=== PATIENT | male | born 1960 | race Caucasian/White ===

== ENCOUNTER 2023-01-25 18:49 | Emergency (ER) | payer MEDICARE, MEDICAID, SELFPAY ==
--- NOTE | 2023-01-25 18:51 | HMH.EDGENADL ---
Discharge Plan Disposition Patient Disposition: Home, Self-Care Condition: Good Chief Complaint: PAIN Clinical Impressions Clinical Impression: Lumbar spine pain, Abdominal pain, lower, Resting tremor Discharge ED Provider: Robert Mcneil General Adult HPI <Rosemary Rivera MD - Last Filed: 01/25/23 19:02> General Chief complaint: PAIN Stated complaint: Flank Pain Time Seen by Provider: 01/25/23 18:51 History of Present Illness HPI narrative: Patient is a 62-year-old male brought in by EMS for acute on chronic conditions. Patient is a poor historian and had difficulty ascertaining exactly what brought him to the emergency department. Patient states he has a chronic tremor and that this is his baseline but he is at increased lower back pain and associated radicular symptoms bilateral lower extremities. Denies any urinary retention or any Urinary or bowel incontinence any saddle anesthesia or any lower extremity paralysis. However he states his pain is worse than its ever been. 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 He also states he has significant lower abdominal pain associate with this. No diarrhea constipation or urinary symptoms. Related Data Allergies Allergy/AdvReac Type Severity Reaction Status Date / Time No Known Allergies Allergy Verified 01/25/23 19:01 [facility] <Rosemary Rivera MD - Last Filed: 01/25/23 19:02> [facility] Disclaimer: The information contained in this section may have been updated after the patient was seen, as this information can be updated by other users. Social History (Updated 01/25/23 @ 19:02 by Rosemary Rivera MD) Smoking Status: Unknown if ever smoked alcohol intake: never current occupational status: other Travel in the last 8 weeks: None <Rosemary Rivera MD - Last Filed: 01/25/23 19:02> ROS Obtained: Yes All systems reviewed & no additional complaints except as documented Physical Exam <Rosemary Rivera MD - Last Filed: 01/25/23 19:02> General General appearance: other (Patient shaking almost in a chorea like movement which she states is baseline) Respiratory Respiratory exam: Present normal lung sounds bilaterally; Absent respiratory distress Cardiovascular Cardiovascular exam: Present regular rate; Absent tachycardia Abdominal Exam Abdominal exam: Present soft and tenderness (Tender bilateral lower quadrants) Back Exam Back exam: Present other (Midline L-spine tenderness to palpation normal motor and sensory exam distally) Neurological Exam Neurological exam: Present alert and oriented X3 Medical Decision Making <Rosemary Rivera MD - Last Filed: 01/25/23 19:02> Gerard Corbin Pt receiving controlled substance: No Vital Signs: 01/25/23 18:54 01/25/23 19:00 01/25/23 20:00 Temperature 98.4 F Temperature Source Oral Pulse Rate 116 H 100 H Pulse Rate [Left Radial] 114 H Respiratory Rate 20 18 20 Blood Pressure 123/79 112/74 Blood Pressure [Right Arm] 109/69 L Blood Pressure Mean 89 80 Blood Pressure Mean [Right Arm] 82 02 Sat by Pulse Oximetry 96 95 97 Oxygen Delivery Method Room Air Lab Data Lab Results 01/25/23 18:49: WBC 20.2 H*, RBC 5.28, Hgb 15.1, Hct 45.9, MCV 86.8, MCH 28.7, MCHC 33.0, RDW 13.9, Plt Count 209, MPV 8.8, Neut % (Auto) 87.7 H, Lymph % (Auto) 8.4 L, Mobile % (Auto) 3.6, Eos % (Auto) 0.1, Baso % (Auto) 0.1, Neut # (Auto) 17.7 H, Lymph # (Auto) 1.7, Mobile # (Auto) 0.7, Eos # (Auto) 0.0, Baso # (Auto) 0.0, Total Counted 100, Neutrophils % (Manual) 83 H, Lymphocytes % (Manual) 12, Atypical Lymphs % 4.0, Monocytes % (Manual) 1 L, Platelet Estimate Normal, RBC Morphology Normal 01/25/23 18:49: Sodium 137, Potassium 3.4 L, Chloride 97 L, Carbon Dioxide 27, Anion Gap 16.4 H, BUN 8 L, Creatinine 0.70, Estimated Creat Clear 91, Estimated GFR 114, Est GFR ( Amer) 137, Glucose 150 H, Calcium 9.0, Total Biliru
[2023-01-25 18:54] VITALS: BP 109/69; PULSE 114; RESP 20; TEMP 36.9; O2SAT 96; BMI 25.7
--- NOTE | 2023-01-25 18:56 | CT_ITS ---
PROCEDURE INFORMATION: Exam: CT Lumbar Spine Without Contrast Exam date and time: 01/25/2023 7:34 PM Age: 62 years old Clinical indication: Low back pain; Additional info: Midline L spine pain TECHNIQUE: Imaging protocol: Computed tomography of the lumbar spine without contrast. Radiation optimization: All CT scans at this facility use at least one of these dose optimization techniques: automated exposure control; mA and/or kV adjustment per patient size (includes targeted exams where dose is matched to clinical indication); or iterative reconstruction. REPORTING DATA: Count of CT and Cardiac NM exams in prior 12 months: This patient has received 0 known CTs and 0 known cardiac nuclear medicine studies in the 12 months prior to the current study. COMPARISON: No relevant prior studies available. FINDINGS: Bones/joints: Study is markedly degraded by motion artifact predominantly at the T12 through L3 levels which significantly limits sensitivity. Multilevel mild to moderate degenerative disc disease extending from T12-L1 through L4-L5. Mild degenerative retrolisthesis at L2-L3. Alignment and vertebral body heights are otherwise preserved although assessment significantly limited due to the motion artifact. No definite fracture seen with above limitation. The central canal and foramina from T12 to the L2-L3 level can not be accurately assessed due to the motion artifact. Bulging disc at L3-L4 with facet arthritic changes resulting in mild central canal and moderate bilateral foramina narrowing. Bulging disc and facet arthritic changes at L4-L5 with mild central canal narrowing and moderate left and [id number] right foramina narrowing. Bulging disc at L5-S1 with facet arthritic changes resulting in gbvj-[id number]-[id number] bilateral foramina narrowing. Soft tissues: Unremarkable. IMPRESSION: Multilevel degenerative changes. No definite fracture but study markedly limited in the mid to upper levels due to motion artifact.
--- NOTE | 2023-01-25 18:56 | CT_ITS ---
PROCEDURE INFORMATION: Exam: CT Abdomen And Pelvis With Contrast Exam date and time: 01/25/2023 7:38 PM Age: 62 years old Clinical indication: Abdominal pain; Additional info: Lower abd pain TECHNIQUE: Imaging protocol: Computed tomography of the abdomen and pelvis with contrast. Radiation optimization: All CT scans at this facility use at least one of these dose optimization techniques: automated exposure control; mA and/or kV adjustment per patient size (includes targeted exams where dose is matched to clinical indication); or iterative reconstruction. Contrast material: ISOVUE; Contrast volume: 75 ml; Contrast route: IV; REPORTING DATA: Count of CT and Cardiac NM exams in prior 12 months: This patient has received 0 known CTs and 0 known cardiac nuclear medicine studies in the 12 months prior to the current study. COMPARISON: CT LUMBAR SPINE WO CON 01/25/2023 7:34 PM FINDINGS: Lungs: Lung bases are clear. Mediastinal space: Incidental veyv-kf-wxvceabs concentric thickening of the partially included distal esophagus. Liver: Some scattered tiny sub 5 mm low-density lesions are noted in the superior liver too small to characterize but likely cysts. Liver otherwise unremarkable. Gallbladder and bile ducts: Gallbladder has been removed. No evident bile duct dilatation. Pancreas: Normal. No ductal dilation. Spleen: Normal. No splenomegaly. Adrenal glands: Incidental 11 mm right adrenal nodule. Kidneys and ureters: There are 2 benign-appearing left renal cysts largest measuring 6.1 cm. Subcentimeter low-density lesions noted in the lower pole the right kidney too small to characterize but likely cysts. Kidneys and ureters otherwise unremarkable with no obstructing stones or uropathy. Stomach and bowel: GI tract structures unremarkable with no evident wall thickening allowing for incomplete distention. Appendix: Appendix is normal. No evidence of appendicitis. Intraperitoneal space: Unremarkable. No free air. No significant fluid collection. Vasculature: Atherosclerotic changes of the aorta and iliacs noted. No evidence of aneurysm. Lymph nodes: Unremarkable. No enlarged lymph nodes. Urinary bladder: Unremarkable as visualized. Reproductive: Unremarkable as visualized. Bones/joints: Unremarkable. No acute fracture. Soft tissues: Small to moderate-sized fat containing umbilical hernia. IMPRESSION: 1. No acute abnormalities of the abdomen and pelvis. 2. Incidental abnormal thickening of the distal esophagus. This is nonspecific and may be related to esophagitis. However, the possibility of other pathology including potential tumor while thought less likely is not excluded. Consider endoscopic correlation especially if symptoms in this region. 3. Incidental 11 mm right adrenal nodule. Lesion most likely benign if no cancer history. Consider 12 month follow-up adrenal CT. (Reference: Felix) COMMENTS: Consistent with the [employer]'s Incidental Findings Committee white paper (J Am Kumar Radiol 2018): Any incidental renal lesion less than 1 cm or classified as too small to characterize, or any incidental cystic renal lesion characterized as simple-appearing, is likely benign. No follow-up imaging is recommended for these lesions per consensus recommendations based on imaging criteria. REFERENCES: Felix MORENO, et al. Management of Incidental Adrenal Masses: A White Paper of the ACR Incidental Findings Committee. J Am Kumar Radiol. 2017;14(8):9406-3547.
[2023-01-25 19:00] VITALS: BP 123/79; PULSE 116; RESP 18; O2SAT 95
[2023-01-25 19:10] LABS: Basophils % 0.1 % (0.1-2.0); Eosinophils % 0.1 % (0.1-12.0); Hematocrit 45.9 % (42.0-52.0); Hemoglobin 15.1 g/dL (14.1-18.0); Lymphocytes # 1.7 K/mm3 (0.7-4.5); Lymphocytes % 8.4 % (10-50); Mean Corpuscular Hemoglobin 28.7 pg (27.0-31.2); Mean Corpuscular Volume 86.8 fl (80-94); Mean Platelet Volume 8.8 fl (7.4-10.4); Monocytes # 0.7 K/mm3 (0.1-1.0); Monocytes % 3.6 % (1.7-9.3); Neutrophils # 17.7 K/mm3 (1.8-7.8); Neutrophils % 87.7 % (37.0-80.0); Platelet Count 209 K/mm3 (142-424); Red Blood Count 5.28 M/mm3 (4.60-6.20); Red Cell Distribution Width 13.9 % (11.5-17.5); White Blood Count 20.2 K/mm3 (4.8-10.8)
[2023-01-25 19:15] LABS: MANUAL DIFFERENTIAL MANUAL DIFFERENTIAL (MANUAL DIFF)
[2023-01-25 19:17] LABS: Alanine Aminotransferase 27 U/L (12-78); Albumin Level 4.4 g/dl (3.5-5.0); Albumin/Globulin Ratio 1.5 (1.1-1.8); Alkaline Phosphatase 84 U/L (38-126); Anion Gap 16.4 mEq/L (5-15); Aspartate Amino Transferase 29 U/L (17-59); Bilirubin,Total 1.1 mg/dl (0.2-1.3); Blood Urea Nitrogen 8 mg/dl (9-20); Carbon Dioxide 27 mmol/L (22.0-30.0); Chloride 97 mmol/L (98-107); Creatinine Clearance Estimated 91 mL/min (50-200); Estimated Glomerular Filt Rate 114 ml/min (>60); GFR (African American) 137 ML/MIN (>60); Glucose 150 mg/dl (74-100); Potassium 3.4 mmoL/L (3.5-5.1); Sodium 137 mmol/L (136-145); Total Protein,Serum 7.4 g/dl (6.3-8.2)
[2023-01-25 19:31] LABS: Lymphocytes % 12 % (10-50); Monocytes % 1 % (2-9); Neutrophils % 83 % (42-76); Platelet Estimate Normal; RBC Morphology Normal; Total Cells Counted 100
[2023-01-25 20:00] VITALS: BP 112/74; PULSE 100; RESP 20; O2SAT 97
[2023-01-25 20:35] LABS: Lactic Acid 1.2 mmol/L (0.7-2.1)
--- NOTE | 2023-01-25 21:32 | PC.NURSE ---
spoke with maisha, household member who states she will try to obtain a ride.
[2023-01-25 21:34] VITALS: BP 143/93; PULSE 83; RESP 18; TEMP 36.9
== END 2023-01-25 21:46 | disposition home or self-care (01) ==
PROVIDERS: Student in an Organized Health Care Education/Training Program; Emergency Provider Family Medicine
DX: M54.50 Low back pain, unspecified (principal); R10.30 Lower abdominal pain, unspecified; R25.1 Tremor, unspecified
CPT/HCPCS: 72131; 74177; 80053; 83605; 85007; 85025; 87040; 87077; 87186; 96361; 96374; 96375; 99285; J2405; Q9967

== ENCOUNTER 2025-02-08 16:00 | Inpatient (IN) | payer MEDICARE, MEDICAID, SELFPAY ==
[2025-02-08] VITALS (10 sets, daily range): BP systolic 112–160; BP diastolic 64–102; PULSE 87–102; RESP 11–18; TEMP 37.1; O2SAT 94–96; BMI 28.5; BMI 28.3
--- NOTE | 2025-02-08 16:01 | ECG_ITS ---
APPROVED REPORT Exam: Resting ECG HR:102 bpm ECG Measurements Heart Rate 102 AXES DE 180 P 58 QRSd 78 QRS 20 QT 307 T 57 QTc 365 Conclusion Sinus tachycardia Electronically signed by : CANDY PEREZ, 02/08/2025 17:58:36
--- NOTE | 2025-02-08 16:05 | CT_ITS ---
PROCEDURE INFORMATION: Exam: CTA Chest With Contrast Exam date and time: 02/08/2025 5:08 PM Age: 64 years old Clinical indication: Other: Cp and vomiting, epigastric pain out of proportion TECHNIQUE: Imaging protocol: Computed tomographic angiography of the chest with contrast. Exam focused on the arteries. 3D rendering (Not supervised by radiologist): MIP and/or 3D reconstructed images were created by the technologist. Radiation optimization: All CT scans at this facility use at least one of these dose optimization techniques: automated exposure control; mA and/or kV adjustment per patient size (includes targeted exams where dose is matched to clinical indication); or iterative reconstruction. Contrast material: ISO 370; Contrast volume: 90 ml; Contrast route: INTRAVENOUS (IV); COMPARISON: CT ABDOMEN PELVIS W CON 01/25/2023 7:38 PM FINDINGS: Pulmonary arteries: No CT evidence for pulmonary embolism. Aorta: Moderate atherosclerotic calcifications of the aorta. Lungs: Imaging through the visualized lung hannah demonstrates mild bibasilar subsegmental atelectasis. Pleural spaces: Unremarkable. No pneumothorax. No pleural effusion. Heart: Unremarkable. No cardiomegaly. No pericardial effusion. Coronary arteries: Three-vessel coronary artery calcifications. Lymph nodes: Unremarkable. No enlarged lymph nodes. Kidneys: Exophytic simple cyst left kidney measures 6 cm diameter. Bones/joints: Unremarkable. No acute fracture. Soft tissues: Chest wall subcutaneous tissues and musculature appear unremarkable. IMPRESSION: 1. No CT evidence for pulmonary embolism or aortic dissection. No acute abnormalities. 2. Exophytic simple cyst left kidney measures 6 cm diameter. COMMENTS: Consistent with the [employer]'s Incidental Findings Committee white paper (J Am Kumar Radiol 2018): Any incidental renal lesion less than 1 cm or classified as too small to characterize, or any incidental cystic renal lesion characterized as simple-appearing, is likely benign. No follow-up imaging is recommended for these lesions per consensus recommendations based on imaging criteria.
--- NOTE | 2025-02-08 16:05 | CT_ITS ---
PROCEDURE INFORMATION: Exam: CTA Abdomen and Pelvis With Contrast Exam date and time: 02/08/2025 5:08 PM Age: 64 years old Clinical indication: Other: Severe epigastric abd pain out of proportion TECHNIQUE: Imaging protocol: Computed tomographic angiography of the abdomen and pelvis with contrast. Exam focused on the arteries. 3D rendering (Not supervised by radiologist): MIP and/or 3D reconstructed images were created by the technologist. Radiation optimization: All CT scans at this facility use at least one of these dose optimization techniques: automated exposure control; mA and/or kV adjustment per patient size (includes targeted exams where dose is matched to clinical indication); or iterative reconstruction. Contrast material: ISO 370; Contrast volume: 90 ml; Contrast route: INTRAVENOUS (IV); COMPARISON: CT ABDOMEN PELVIS W CON 01/25/2023 7:38 PM FINDINGS: Aorta: Severe atherosclerotic calcifications of the aorta. Celiac trunk and mesenteric arteries: No occlusion or significant stenosis. Renal arteries: No occlusion or significant stenosis. Right iliac arteries: Mild stenosis estimated at 30% at the origin of the right common iliac artery. Left iliac arteries: No occlusion or significant stenosis. Liver: Moderate diffuse hepatic steatosis is identified. Gallbladder and biliary ducts: There has been a cholecystectomy. Pancreas: The pancreas is normal. Spleen: The spleen is normal. Adrenal glands: The adrenal glands appear within normal limits. Kidneys and ureters: Exophytic cyst with minimal layering milk of calcium of the left kidney mid zone measures 6 cm. Stomach and bowel: The stomach appears within normal limits. No wall thickening or inflammatory change. Appendix: No evidence of appendicitis. Intraperitoneal space: No free air. No evidence for focal fluid collection or ascites. No evidence for omental thickening. Lymph nodes: Unremarkable. No pathologically enlarged lymph nodes are identified. Urinary bladder: The bladder appears within normal limits. No wall thickening. Reproductive: Unremarkable as visualized. Bones/joints: No acute fracture. Soft tissues: Umbilical hernia contains fat without bowel. Hernia sac measures 3.5 cm. IMPRESSION: 1. No CT evidence for aortic dissection or aneurysm. 2. Mild stenosis estimated at 30% at the origin of the right common iliac artery. 3. Exophytic cyst with minimal layering milk of calcium of the left kidney mid zone measures 6 cm. 4. Umbilical hernia contains fat without bowel. Hernia sac measures 3.5 cm.
--- OUTSIDE RECORDS SUMMARY | 2025-02-08 16:07 | XMS_ITS | Clinical Summary ---
Author Organization [facility] Address [address] [place] [phone] Phone Care Team Providers Care Enterprise Systems Manager Name Role Phone Madelin Diop PA-C Primary Care Physician [ ] Conditions or Problems Problem Name Problem Code Onset Date Status Entry Date Provider Comment Standard Description Annotate UMBILICAL HERNIA 626083599 (SNOMED CT) 03/02 Active 03/02 Madelin Diop PA-C Umbilical hernia ELEVATED BP READING WITHOUT DX HYPERTENSION R03.0 (ICD-10-CM ) 03/02 Active 03/02 Madelin Diop PA-C Elevated blood-pressure reading, without diagnosis of hypertension HYPOTHYROIDIS M 78390836 (SNOMED CT) 03/02 Active 03/02 Madelin Diop PA-C Hypothyroidism HELICOBACTER PYLORI GASTRITIS 82838711 (SNOMED CT) 03/02 Active 03/02 Madelin Diop PA-C Helicobacter-asso ciated gastritis GERD 111672731 (SNOMED CT) 03/02 Active 03/02 Madelin Diop PA-C Gastroesophageal reflux disease HYPERLIPIDEMI A 76810938 (SNOMED CT) 03/02 Active 03/02 Madelin Diop PA-C Hyperlipidemia SHOULDER PAIN 47454671 (SNOMED CT) 03/02 Active 03/02 Madelin Diop PA-C Pain of shoulder region NECK PAIN 93131650 (SNOMED CT) 03/02 Active 03/02 Madelin Diop PA-C Neck pain BACK PAIN LUMBAR CHRONIC M54.5 (ICD-10-CM ) 03/02 Active 03/02 Madelin Diop PA-C Low back pain TOBACCO USE DIS F17.200 (ICD-10-CM ) 03/02 Active 03/02 Madelin Diop PA-C Nicotine dependence, unspecified, uncomplicated Medications Medication Instructions Start Date Stop Date Generic Name NDC Provider PROMETHAZINE HCL 25 MG TABS TAKE 1 TABLET BY MOUTH EVERY 6 HOURS NEEDED FOR NAUSEA PROMETHAZINE HCL [id number] Madelin Diop PA-C PYLERA 140-125-125 MG CAPS TAKE 1 CAPSULE BY MOUTH 4 TIMES A DAY BIS SUBCIT-METRONID- TETRACYC [id number] Madelin Diop PA-C METOCLOPRAMIDE HCL 10 MG TABS TAKE 1 TABLET BY MOUTH 4 TIMES A DAY NEEDED METOCLOPRAMIDE HCL 51734139310 Madelin Diop PA-C NEXIUM 40 MG CPDR TAKE 1 CAPSULE BY MOUTH ONCE A DAY ESOMEPRAZOLE MAGNESIUM 97369441626 Madelin Diop PA-C CRESTOR 10 MG TABS TAKE 1 TABLET BY MOUTH EVERY NIGHT ROSUVASTATIN CALCIUM [id number] Madelin Diop PA-C Medications Administered No information available. Allergies, Adverse Reactions, Alerts Allergy Name Reaction Description Start Date Severity Statu s Provider CLONIDINE RASH Critical Active Madelin poe PA-C PCN DOESN'T KNOW Critical Active Madelin dunn PA-C Results No information available. Plan of Care Type Date Detail Referral Pain Management Ref [facility] -Dr. Arellano in [place] Titus Connolly MD, [address], [place], [address] Procedures Code Procedure Name Date Entry Date LOVE SALGADO PAIN Pain Management Ref [facility] -Dr. Arellano in [place] Vital Signs Date Name Value Unit Description BMI (Body Mass Index) 31.31 kg/m2 Bod y Mass Index (Ratio) Body Temperature 98 [degF] temperat ure E&M Body Temperature 36.7 Lisa temperat ure in centigrade E&M BP Diastolic 101 mm[Hg] blood pressu re, diastolic BP Systolic 156 mm[Hg] blood pressur e, systolic Heart Rate 109 /min pulse rate Height 182.88 cm height in cent imeters E&M Height 72 [in_us] height E&M Weight Measured 230 [lb_av] weight E& M Weight Measured 230 [lb_av] weight E& M Weight Measured 104.55 kg weight in kilograms E&M Immunizations No information available. Advance Directives No information available.
--- OUTSIDE RECORDS SUMMARY | 2025-02-08 16:08 | XMS_ITS | Clinical Summary ---
Author Organization [facility] Address [address] [place] [address] Care Team Providers Care Naval Architect Name Role Phone Unavailable Primary Care Provider Unavailabl e Social History Tobacco Use Types Packs/Day Years Used Date Smoking Tobacco: Never Assessed Sex and Gender Information Value Date Recorded Sex Assigned at Not on file Legal Sex Male 8:34 PM EDT Gender Identity Not on file Sexual Orientation Not on file Plan of Treatment Health Maintenance Due Date Last Done Comments Dental Oral Exam 1958 Dental Prophylaxis 1958 Dental X-Ray: Bitewings 1958 Dental X-Ray: Full Mouth 1958 [facility]-Depression Screening 1958 [facility]-/Child/Adol SDOH Screenings 1958 [facility]- SDOH Screenings 1976 [facility]-Adult SDOH Screenings 1976 [facility]-DTaP,Tdap,and Td Vaccine s (1 - Tdap) 1977 CT Colonography 2003 Colonoscopy 2003 FIT-DNA 2003 FIT 2003 FOBT 2003 Sigmoidoscopy 2003 [facility]-Colorectal Cancer Screening 2003 [facility]-Pneumococcal Vaccine: 50 + Years (1 of 1 - PCV) 2008 [facility]-Zoster Vaccines (1 of 2) 2008 [id number] Vaccine (1 - 20 24-25 season) 2024 [facility]-Influenza Vaccine (Seas[place] n Ended) 2025 [facility]-RSV Vaccine: 60+ Years o r (1 - 1-dose 75+ series) 2033 HPV Vaccines Aged Out No longer eligi ble based on patient's age to complete this topic [facility]-HIB Vaccines Aged Out No longer e ligible based on patient's age to complete this topic [facility]-Hepatitis A Vaccines Aged Out No longer eligible based on patient's age to complete this topic [facility]-IPV Vaccines Aged Out No longer e ligible based on patient's age to complete this topic [facility]-Rotavirus Vaccines Aged Out No lo nger eligible based on patient's age to complete this topic
--- OUTSIDE RECORDS SUMMARY | 2025-02-08 16:08 | XMS_ITS | Clinical Summary ---
Author Organization [facility] Address [address] [place] [address] Phone Care Team Providers Care Boom Operator Name Role Phone Luis Brito DO Primary Care Provider [phone] Allergies Active Allergy Reactions Criticality Noted Date Comments Ciprofloxacin (Bulk) 03/18/2010 Clonidine Rash High 03/02/2013 Cyclobenzaprine Nausea Only 03/12/2013 Gabapentin Dermatitis 03/12/2013 Lidocaine Rash Pregabalin Palpitations 03/12/2013 Medications busPIRone (BUSPAR) 15 mg Oral TabletIndication s:Generalized anxiety disorder Take 1 Tablet by mouth 2 times daily as needed. 60 Tablet 2 3 Active Additional Information Patient not taking.Reason: Too expensive, Reported on 06/11/2023 betamethasone dipropionate 0.05 % Top CreamIndications :Eczema, unspecified type Apply topically 2 times daily. 45 g 3 Active Additional Information Patient not taking.Reason: Pt electing to not take the medication, Reported on 09/06/2023 methocarbamoL (ROBAXIN) 750 mg Oral Tablet Take 1 Tablet by mouth 4 times daily as needed. 120 Tablet 1 3 Active Additional Information Patient not taking.Reason: Too expensive, Reported on 06/11/2023 hydrocortisone 2.5 % Top CreamIndications :Seborrheic dermatitis Apply topically 2 times daily. 28 g 1 4 Active Active Problems Patient Care Coordination No te Formatting of this note migh t be different from the original. NO CONTROLLED MEDS- RONDA 6.13.17 csta 04/08/2012 Opioids 04/08/2012 Benzo 04/08/2012 soapp (4) 04/08/2012 Gerard 01/10/16#[id number],03/05/16([id number]) [facility] - Javy Camacho MD Interventional Pain Protocol: Gerard report completed (EVERY 3 MONTHS) (12/19/2021) Pharmacy:[facility] [id number] [place] [address] - [address] - [phone] Spine Center additional info (Transportation, WC, Compound, No Show, PPW) [facility] audit completed by Velia Regan RN on 12/20/2022. Problem Noted Date Diagnosed Date Pleurisy with effusion 05/01/2020 Sepsis without acute organ dysfunction 0 Abnormality of heart valve 04/29/2020 Overview (05/06/2020): Added automatically from request for surgery [id number] FH: colon cancer in relative diagnosed at >50 ye ars old 04/22/2017 Hepatitis C antibody test positive 03/20/2017 Diabetic neuropathy with neurologic complication 04/26/2013 Diabetic polyneuropathy 04/26/2013 DM type 2 with diabetic peripheral neuropathy DDD (degenerative disc disease) failed tox 03/12 Gastroesophageal reflux disease 03/02/2013 Hyperlipidemia 03/02/2013 Hypothyroidism 03/02/2013 Vitamin D deficiency 12/04/2012 failed tox screen no more controlls 04/08/2012 Umbilical hernia 05/17/2011 Primary hypothyroidism 11/27/2010 B12 deficiency 10/30/2010 SHANEL (generalized anxiety disorder) 03/20/2010 GERD (gastroesophageal reflux disease) 0 Chronic neck pain 03/18/2010 Hypercholesterolemia Pneumonia due to infectious organism Empyema Pleural effusion on left Bacteremia Resolved Problems Problem Noted Date Diagnosed Date Resolved Date Chest pain in adult 03/20/2017 03/21/20 17 Syncope and collapse 03/20/2017 017 Leukocytosis 03/20/2017 03/21/2017 Diabetic polyneuropathy 03/12/2013 09/0 08/2012 Low back pain 03/02/2013 11/25/2018 DM type 2 with diabetic peripheral neuropathy 12/05/19 13 03/12/2013 Shoulder pain 09/03/2011 11/25/2018 Neck pain 09/03/2011 04/26/2013 DM (diabetes mellitus) 04/17/201004/26 Skull fracture 03/18/2010 02/05/2017 DDD (degenerative disc disease) 03/18/2010 03/12/2013 Fatigue 01/31/2017 Immunizations Immunization Administration Dates Next Due Pneumococcal Conjugate Vaccine 13 Valent 017 Tdap 03/27/2017,12/12/2015,05/20/2012 Surgical History Surgery Date Site/Laterality Comments FRACTURE SURGERY CHOLECYSTECTOMY 08/26/2001 - 08/25/2002 HAND TENDON SURGERY 1980s TONSILLECTOMY AND ADENOIDECTOMY COLONOSCOPY [facility] CT PLEURAL DRAIN PERCUT WITH INSERTION OF INDWELLING CATH W IMAGING 05/06/2020 CT PLEURAL DRAIN PERCUT WITH INSERTION OF INDWELLING CATH W IMAGING 05/06/[address] THORACOSCOPY 05/09/2020 Left Left Video Assisted Thorascopy, Washout and Decortication; Surgeon: Abby Leslie MD; Location: [facility] MAIN OR; Service: Thoracic Medical History Medical History Date Comments GERD (gastroesophageal reflux disease) 03/20/2010 DM (diabetes mellitus) (HCC) 04/17/2010 DDD (degenerative disc disease) 03/18/2010 Hypothyroid 11/27/2010 Back pain Neck pain, chronic DM type 2 with diabetic peripheral neuropathy (H CC) 03/12/2013 DM type 2 with diabetic peripheral neuropathy (H CC) 12/04/2012 Hepatitis SHANEL (generalized anxiety disorder) Family History Medical History Relation Name Comments No Known Problems Brother Cancer Father colon Colon Polyps Father No Known Problems Maternal Grandfather No Known Problems Maternal Grandmother Cancer Mother liver No Known Problems Other No Known Problems Paternal Grandfather No Known Problems Paternal Grandmother No Known Problems Sister Allergies Neg Hx Bleeding Prob Neg Hx Hearing Loss Neg Hx Heart Disease Neg Hx Migraines Neg Hx Thyroid Disease Neg Hx Relation Name Status Comments Brother Father Maternal Grandfather Maternal Grandmother Mother Other Paternal Grandfather Paternal Grandmother Sister Social History Tobacco Use Types Packs/Day Years Used Date Smoking Tobacco: Former Cigarettes 0.5 1 0 03/22/2016 - 03/22/2017 Cigars Smokeless Tobacco: Never Comments:states he smokes ma rjuania Alcohol Use Standard Drinks/Week Comments No 0 (1 standard drink = 0.6 oz pur e alcohol) PHQ-2 Answer Date Recorded PHQ-2 Total Score 0 09/06/2023 Sex and Gender Information Value Date Recorded Sex Assigned at Not on file Legal Sex Male 8:00 PM EDT Gender Identity Not on file Sexual Orientation Not on file Obstetrics History Last Filed Vital Signs Vital Sign Reading Time Taken Comments Blood Pressure 144/89 09/13/2023 1:08 PM EST Pulse 95 09/13/2023 1:08 PM EST Temperature 36.3 C (97.4 F) 09/13/2023 11:56 AM EST Respiratory Rate 18 09/13/2023 1:08 PM EST Oxygen Saturation 97% 09/13/2023 1:08 PM EST Inhaled Oxygen Concentration - - Weight 90.7 kg (200 lb) 09/13/2023 11:56 AM EST Height 182.9 cm (6') 09/13/2023 11:56 AM EST Body Mass Index 27.12 09/13/2023 11:56 AM EST Plan of Treatment Health Maintenance Due Date Last Done Comments Cologuard 2003 FIT 2003 Sigmoidoscopy 2003 Virtual Colonography 2003 Zoster (1 of 2) 2008 Pneumococcal Vaccine 50+ (2 of 2 - PPSV23, PCV20, or PCV21) 03/28/2017 01/31/2017 RSV or 60+ (1 - Ris k 60-74 years 1-dose series) 2018 Colon Cancer Screening 12/26/2022 Colonoscopy 12/26/2022 12/26/2012 AAA Screening 2023 COVID-19 Vaccine (1 - 2023-2 5 season) 2024 Annual Wellness Exam 09/06/2024 09/06/2023 Microalbuminuria 09/06/2024 09/06/2023, , 05/02/2020, Additional history exists Hemoglobin A1c 10/19/2024 04/18/2024, 09/27, 05/14/2022, Additional history exists Diabetic Eye Exam 10/22/2024 10/22/2022 Lipids 04/18/2025 04/18/2024, 04/26, 05/14/2022, Additional history exists Influenza Vaccine (Season Ended) 2025 DTaP/TDaP/Td (4 - Td or Tdap) 03/27/2027, 12/12/2015, 05/20/2012 Hepatitis C Screening Completed 04/30/2020 , 02/05/2017, 01/31/2017 Hepatitis B Vaccine Aged Out No longe r eligible based on patient's age to complete this topic Meningococcal B Vaccine Aged Out No l onger eligible based on patient's age to complete this topic Goals Goal Patient Goal Type Associated Problems Recent Progress Patient-Stated? Author Blood Pressure < 140/90 Blood Pressure 144/89(2023 1:08 PM EST) No Keily Kovacs BMI (Calculated) < 30 General 27.2(09/13/19 11:56 AM EST) Keily Trujillo Maintain a healthy diet, exercise regularly and maintain an ideal body weight General No Cheryl Putnam RMA Stay Tobacco Free Lifestyle No Cheryl Putnam RMA HEMOGLOBIN A1C < 7.0 Result Component 6.9( 1:46 PM EST) Keily Trujillo Procedures Procedure Name Priority Date/Time Associated Diagnosis Comments POCT URINE MICROALBUMIN Routine 09/06/2023 12:02 PM EST POCT GLYCATED HEMOGLOBIN, TOTAL Routine 10/22/2022 1:46 PM EST Type 2 diabetes mellitus without complication, unspecified whether terminal press operator insulin use (HCC) DM type 2 with diabetic peripheral neuropathy (HCC) LIPID SCREEN Routine 05/14/2022 2:49 PM EDT DM type 2 with diabetic peripheral neuropathy (HCC) ACUTE HEPATITIS PANEL Routine 04/30/2020 9:16 AM EDT from Last 3 Months or Most Recently Relevant to Health Maintenance Results * POCT URINE MICROALBUMIN (09/06/2023 12:02 PM EST) Microalb, Ur 30 mg/L 09/06/2023 12:04 PM EST [facility] Creatinine Urine 300 mg/dL 09/06/2023 12:04 PM EST [facility] Micro[employer]/Accounts Payable Professional. Ratio <30 <30 mg/g 09/06/2023 12:04 PM EST [facility] Urine URINE SPECIMEN COLLECTION / Unknown 09/06/2023 12:02 PM EST 09/06/2023 12:04 PM EST us Luis Alisha DO POINT OF CARE TEST ORDERABLES F inal Result Performing Organization Address [facility]/[place] [address] * (ABNORMAL) POCT GLYCATED HEMOGLOBIN, TOTAL (10/22/2022 1:46 PM EST) Hemoglobin A1C 6.9(A) 4 - 6 % SEP OFFICE Lot Number SEP OFFICE Expiration Date SEP OFFICE SeriAl # SEP OFFICE 10/22/2022 1:46 PM EST [facility] POINT OF CARE TEST ORDERABLES F inal Result Performing Organization Address City/[facility]/ZIP Co de Phone Number SEP OFFICE * (ABNORMAL) LIPID SCREEN (05/14/2022 2:49 PM EDT) Cholesterol 186 <200 mg/dL 05/14/2022 9:23 PM EDT PREFERRED [facility] Comment: < 200 Desirable 200 - 239 Borderline High >= 240 High Triglyceride 190(H) <150 mg/dL 05/14/2022 9:23 PM EDT [facility] Comment: < 150 Normal 150 - 199 Borderline High 200 - 499 High >= 500 Very High HDL 39(L) >=40 mg/dL 05/14/2022 9:23 PM EDT [facility] Comment: > 60 Optimal 40 - 60 Acceptable < 40 Low LDL Calculated 114(H) <100 mg/dL 05/14/2022 9:23 PM EDT [facility] Comment: < 100 Optimal 100 - 129 Near or above optimal 130 - 159 Borderline High 160 - 189 High >= 190 Very High Non-HDL-C Calculated 147(H) <=129 mg/dL 05/14/2022 9:23 PM EDT [facility] Comment: <130 Desirable 130-159 Above Desirable 160-189 Borderline High 190-219 High >= 220 Very High Fasting Specimen? No None 022 9:23 PM EDT [facility] Blood VENOUS BLOOD / Unknown Venipuncture / Unknown 05/14/2022 2:49 PM EDT 05/14/2022 2:49 PM EDT Luis Alisha JUDGE CHEMISTRY ORDERABLES Final Resu lt PREFERRED LAB [employer], [facility] [address] , [address] [place] [id number] [facility] [address] [place] [address] * (ABNORMAL) ACUTE HEPATITIS PANEL (04/30/2020 9:16 AM EDT) Hep Bs Ag Non-Reacti ve Non-Reacti ve 04/30/2020 2:15 PM EDT PREFERRED LAB [employer], [facility] Hep B Core IgM Non-Reacti ve Non-Reacti ve 04/30/2020 2:15 PM EDT [facility] [email or web address], [employer] Hep A IgM Non-Reacti ve Non-Reacti ve 04/30/2020 2:15 PM EDT [facility] [employer], [facility] Hep C Ab Reactive(A ) Non-Reacti ve 04/30/2020 2:15 PM EDT [facility] [email or web address], [facility] Comment:Reactive. Antibodies to HCV detected. >97% of specimens with high signal cutoff confirm as reactive. HCV QUANT W/RFLX TO GENOTYPE -REF LAB is suggested for newly diagnosed HCV. Blood Venipuncture / Unknown 04/30/2020 9:16 AM EDT 04/30/2020 9:38 AM EDT Renay Whitfield MD CHEMISTRY ORDERABLES Final Resul t [facility] [address] [facility] [place] [address] from Last 3 Months or Most Recently Relevant to Health Maintenance Insurance MEDICA[place] MED[place] HMO [place] MEDICARE HMO ATTN: MEDICAL DEPT. [address] ATTN: MEDICAL DEPT. [address] * Guarantor: CORPORATE,[facility] Account Type Relation to Patient Date of Phone Billing Address [employer] ATTN: MEDICAL DEPT. [address] Advance Directives For more information, please contact: [phone] * Full Code (Latest Code Status on File) Date Activated Date Inactivated Comments 05/09/2020 8:46 AM 05/14/2020 12:01 AM * Full Code Date Activated Date Inactivated Comments 05/08/2020 5:03 PM 05/09/2020 8:04 AM * Full Code Date Activated Date Inactivated Comments 04/30/2020 9:46 PM 05/05/2020 9:01 PM * Full Code Date Activated Date Inactivated Comments 04/30/2020 4:35 AM 04/30/2020 9:46 PM * Full Code Date Activated Date Inactivated Comments 04/29/2020 10:52 PM 04/30/2020 4:35 AM Care Teams Boom Operator Relationship Specialty Start Date End Date Luis Brito DO [address] [place] [address] PCP - General Family Medicine 11/25/18
--- OUTSIDE RECORDS SUMMARY | 2025-02-08 16:08 | XMS_ITS | Encounter Summary ---
Author Organization [place] [address] [place] [address] Care Team Providers Care Computer Peripheral Equipment Operator Name Role Phone Sarita Ortiz DO Primary Care Provide r [place], [place] Primary Care Provider Luis Fang DO Primary Care Provider [phone] Marla Callahan RN Unavailable Jacey huang Encounter Details Date Type Department Care Team (Late st Contact Info) Description 02/20/2018 Patient Outreach [facility] [address] [place] [address] Sarita Ortiz, DO [address] [place] [address] Social History Tobacco Use Types Packs/Day Years Used Date Smoking Tobacco: Former Cigarettes 0.5 1 0 03/22/2016 - 03/22/2017 Cigars Smokeless Tobacco: Never Alcohol Use Standard Drinks/Week Comments No 0 (1 standard drink = 0.6 oz pur e alcohol) Sex and Gender Information Value Date Recorded Sex Assigned at Not on file Legal Sex Male 8:00 PM EDT Gender Identity Not on file Sexual Orientation Not on file documented as of this encounter Plan of Treatment Scheduled Orders Name Type Priority Associated Diagnoses Orde r Schedule BASIC METABOLIC PANEL Lab Routine Diabetic polyneuropathy (HCC) 1 Occurrences starting 02/20/2018 until 05/23/2018 HEPATIC FUNCTION PANEL Lab Routine Diabetic polyneuropathy (HCC) 1 Occurrences starting 02/20/2018 until 05/23/2018 HEMOGLOBIN A1C Lab Routine Diabetic polyneuropathy (HCC) 1 Occurrences starting 02/20/2018 until 05/23/2018 LIPID SCREEN Lab Routine Diabetic polyneuropathy (HCC) 1 Occurrences starting 02/20/2018 until 05/23/2018 MICROALBUMIN/CREATININ E RATIO URINE Lab Routine Diabetic polyneuropathy (HCC) 1 Occurrences starting 02/20/2018 until 05/23/2018 documented as of this encounter Goals Goal Patient Goal Type Associated Problems Recent Progress Patient-Stated? Author Blood Pressure < 140/90 Blood Pressure 144/89(2023 1:08 PM EST) No Keily Kovacs BMI (Calculated) < 30 General 27.2(09/13/19 11:56 AM EST) No Keily Kovacs Maintain a healthy diet, exercise regularly and maintain an ideal body weight General No Cheryl Putnam RMA Stay Tobacco Free Lifestyle No Cheryl Putnam RMA HEMOGLOBIN A1C < 7.0 Result Component 6.9( 1:46 PM EST) No Keily Kovacs documented as of this encounter Visit Diagnoses Diagnosis Diabetic polyneuropathy (HCC) Type II or unspecified type diabetes mellitus with neurological manifestations, not stated as uncontrolled documented in this encounter Additional Health Concerns Infection Onset Date Last Indicated Resolved Time R/O COVID-19 04/29/2020 04/29/2020 04/29/2020 8:31 PM EDT R/O TB 05/03/2020 05/03/2020 05/05/2020 8:08 AM EDT documented as of this encounter Care Teams Computer Peripheral Equipment Operator Relationship Specialty Start Date End Date Sarita Ortiz DO [address] [place] [address] PCP - General Family Medicine 10/05/16 03/25/18 [place], [place] [address] [place] [address] PCP - General 03/26/18 11/24/18 Luis Brito DO [address] [place] [address] PCP - General Family Medicine 11/25/18 Marla Callahan, RN Bowling Alley Operator Registered Nurse 05/16/2004/27 documented as of this encounter
--- OUTSIDE RECORDS SUMMARY | 2025-02-08 16:08 | XMS_ITS | Referral Summary ---
Author Organization [facility] Address [address] [address] Care Team Providers Care Motorcycle Fabricator Name Role Phone Unavailable Primary Care Provider Unavailabl e Social History Tobacco Use Types Packs/Day Years Used Date Smoking Tobacco: Never Assessed Sex and Gender Information Value Date Recorded Sex Assigned at Not on file Legal Sex Male 8:59 PM EDT Gender Identity Not on file Sexual Orientation Not on file Plan of Treatment Not on file
--- OUTSIDE RECORDS SUMMARY | 2025-02-08 16:08 | XMS_ITS | Encounter Summary ---
Author Organization [place] [address] [place] [address] Care Team Providers Care Air Conditioning Sheet Metal Installer Name Role Phone [employer], [place] Primary Care Provider Luis Fang DO Primary Care Provider [phone] Marla Callahan RN Unavailable Jacey huang Encounter Details Date Type Department Care Team (Late st Contact Info) Description 03/26/2018 Patient Outreach [facility] [address] [place] [address] Sarita Ortiz [address] [place] [address] Social History Tobacco Use Types [...] Routine Diabetic polyneuropathy (HCC) 1 Occurrences starting 03/26/2018 until 06/26/2018 HEPATIC FUNCTION PANEL Lab Routine Diabetic polyneuropathy (HCC) 1 Occurrences starting 03/26/2018 until 06/26/2018 LIPID SCREEN Lab Routine Diabetic polyneuropathy (HCC) 1 Occurrences starting 03/26/2018 until 06/26/2018 MICROALBUMIN/CREATININ E RATIO URINE Lab Routine [address] arting 03/26/2018 until 03/26/2019 HEMOGLOBIN A1C Lab Routine Diabetic polyneuropathy (HCC) 1 Occurrences starting 03/26/2018 until 06/26/2018 documented as of this encounter Goals Goal Patient Goal Type Associated Problems Recent Progress Patient-Stated? Author Blood Pressure < 140/90 Blood Pressure 144/89(2023 1:08 PM EST) No Keily Kovacs BMI (Calculated) < 30 General 27.2(09/13/19 24 11:56 AM EST) Keily Trujillo Maintain a [...] documented as of this encounter Care Teams Air Conditioning Sheet Metal Installer Relationship Specialty Start Date End Date [facility] PCP - General 03/26/18 11/24/18 Luis Brito DO [address] [place] [address] PCP - General Family Medicine 11/25/18 Marla Callahan, RN Edm Operator Registered Nurse 05/16/2004/27 documented as of this encounter
--- OUTSIDE RECORDS SUMMARY | 2025-02-08 16:08 | XMS_ITS | Clinical Summary ---
Author Organization [facility] Address [address] [place] [address] Care Team Providers Care Gum Worker Name Role Phone Unavailable Primary Care Provider Unavailabl e Social History Tobacco Use Types Packs/Day Years Used Date Smoking Tobacco: Never Assessed Sex and Gender Information Value Date Recorded Sex Assigned at Not on file Legal Sex Male 8:59 PM EDT Gender Identity Not on file Sexual Orientation Not on file Plan of Treatment Health Maintenance Due Date Last Done Comments Hepatitis C Screening 1958 DTap,Tdap,and Td (1 - Tdap) 1969 Colonoscopy 2003 PSA YEARLY 2008 Pneumococcal 50+ (1 of 1 - PCV) 2008 Shingrix (#1) 2008 Influenza Vaccine (Season Ended) 2025 RSV Vaccine (60+ or ) (1 - 1-dose 75+ series) 2033 HPV Aged Out No longer eligi ble based on patient's age to complete this topic Meningococcal conjugate ana nt 4 (MCV4) Aged Out No longer eligible b ased on patient's age to complete this topic RSV Immunization (<20 months) Aged Out No longer eligible based on patient's age to complete this topic
--- NOTE | 2025-02-08 16:24 | ED_ITS ---
Discharge Plan Disposition Patient Disposition: Admitted Referrals Follow up/Referrals: Provider,Referral, [Referring, Medical] - See instructions Clinical Impressions Clinical Impression: Intractable abdominal pain, Vomiting and diarrhea Instructions Patient Instructions: DI for Diarrhea and Traveler's Diarrhea -- Adult, DI for Diarrhea and Traveler's Diarrhea -- Child, DI for Nausea -- Adult, DI for Nausea -- Child Print Language Print Language: Slovak Discharge ED Provider: Rafael East HPI General Chief Complaint: Nausea/Vomiting/Diarrhea Stated Complaint: Vomiting Time Seen by Provider: 02/08/25 16:01 History of Present Illness HPI narrative: Please note that above description of symptoms, in this electronic medical record under categorization of recalled from ER triage doctor by RN are reflective of an initial nursing assessment, however, is not reflective of my full history and physical exam that was personally taken and clarified. Consequentially, this preceding description of symptoms, which may include the patient's categorized chief complaint in the EMR, do not reflect my personal clinical impression, and the ultimate description of history of present illness and patient stated complaints should be deferred to this section of the note. Unless stated otherwise or congruent with this section of the note, additional signs, symptoms, or incongruence should be interpreted as inaccurate with my clinical impression. Related Data Allergies Allergy/AdvReac Type Severity Reaction Status Date / Time No Known Allergies Allergy Verified 01/25/23 19:01 [facility] Disclaimer: The information contained in this section may have been updated after the patient was seen, as this information can be updated by other users. Social History (Updated 01/25/23 @ 19:02 by Rosemary Rivera MD) Smoking Status: Never smoker alcohol intake: never current occupational status: other Travel in the last 8 weeks?: None Have you lived/traveled outside US in past 30 days?: No Contact w/someone who lives/traveled outside US past 30 days?: No Exposure to someone with infectious disease in past 14 days?: No Do you have a fever (greater than 100.4 F or 38 C)?: No Have you tested positive for COVID-19?: No Exposed to someone with COVID-19 in past 14 days?: No Do you have a sore throat?: No Do you have a cough?: No Do you have any weakness?: No Do you have any diarrhea?: No Are you experiencing any unusual bleeding?: No Do you have any muscle aches/pain?: No Do you have any abdominal pain?: No Are you experiencing loss of taste or smell?: No ROS Obtained: Yes All systems reviewed & no additional complaints except as documented Physical Exam General General appearance: alert and in no apparent distress Comment: malodorous, unkempt Neck Neck exam: Present trachea midline Chest Chest inspection: Present normal inspection and symmetric chest wall rise Respiratory Respiratory exam: Present normal lung sounds bilaterally; Absent respiratory distress, wheezes, stridor, accessory muscle use or prolonged expiratory phase Cardiovascular Cardiovascular exam: Present normal rhythm, tachycardia and other (Pulses equal and symmetric in upper and lower extremities) Abdominal Exam Abdominal exam: Present soft, distention, tenderness and hernia (irreducible umbilical hernia); Absent guarding, rebound or rigidity Extremities Exam Extremities exam: Absent edema Neurological Exam Neurological exam: Present alert, oriented X3 and CN II-XII intact Skin Skin exam: Present warm and dry; Absent cyanosis, diaphoresis or pallor HEART Score HEART Score HEART Score assessment performed?: Yes History (anamnesis): Moderately suspicious ECG: Normal Age: >65 years Risk factors: 1-2 risk factors Troponin: </= normal limit HEART Score: 4 Critical Care Critical Care Time Critical Care Time: No Medical Decision Making Medical Records Medical records reviewed: Yes I reviewed the patient's medical records. Gerard Inquiry Pt receiving controlled substance: No Gerard was queried for this patient: No Vital Signs Vital Signs: 02/08/25 16:30 02/08/25 16:39 02/08/25 17:00 Temperature 98.7 F Temperature Source Oral Pulse Rate 97 H 93 H Pulse Rate [Right Radial] 102 H Respiratory Rate 18 15 12 Blood Pressure 117/68 112/66 Blood Pressure [Right Arm] 130/77 Blood Pressure Mean [Right Arm] 94 Blood Pressure Source [Right Arm] Automatic Cuff Blood Pressure Position [Right Arm] Supine 02 Sat by Pulse Oximetry 95 96 95 Oxygen Delivery Method Room Air 02/08/25 17:30 Temperature Temperature Source Pulse Rate 88 Pulse Rate [Right Radial] Respiratory Rate 14 Blood Pressure 117/64 Blood Pressure [Right Arm] Blood Pressure Mean [Right Arm] Blood Pressure Source [Right Arm] Blood Pressure Position [Right Arm] 02 Sat by Pulse Oximetry 95 Oxygen Delivery Method Lab Data Labs: Lab Results 02/08/25 16:22: WBC 12.0 H, RBC 5.59, Hgb 17.0, Hct 50.1, MCV 89.6, MCH 30.4, MCHC 33.9, RDW 12.6, Plt Count 244, MPV 11.7 H, Neut % (Auto) 83.2 H, Lymph % (Auto) 9.1 L, Parker % (Auto) 6.7, Eos % (Auto) 0.5, Baso % (Auto) 0.2, Neut # (Auto) 10.0 H, Lymph # (Auto) 1.1, Parker # (Auto) 0.8, Eos # (Auto) 0.1, Baso # (Auto) 0.0, Sodium 137, Potassium 3.7, Chloride 108 H, Carbon Dioxide 21 L, Anion Gap 11.7, BUN 15, Creatinine 0.80, Estimated Creat Clear 98, Estimated GFR 97, Est GFR ( Amer) 117, Glucose 189 H, Hemoglobin A1c 9.2 H, Calcium 9.4, Total Bilirubin 0.8, AST 29, ALT 32, Alkaline Phosphatase 70, Troponin I < 0.01, Total Protein 7.5, Albumin 4.4, Globulin 3.1, Albumin/Globulin Ratio 1.4, Triglycerides 195 H, Cholesterol 188, LDL Cholesterol Direct 108.27, VLDL Cholesterol 39, HDL Cholesterol 37 L, Cholesterol/HDL Ratio 5.1 H, Lipase 78, TSH 1.38, Thyroxine (T4) 5.5 L 02/08/25 16:27: VBG pH 7.34, VBG pCO2 38.2, VBG pO2 88.8 H, VBG HCO3 20.0 L, VBG Total CO2 21.2 L, VBG O2 Saturation 96.9 H, VBG Base Excess -5.8 L, VBG Lactic Acid 3.0 H 02/08/25 16:34: PT 10.9, INR 0.98, APTT 22.0 L, HIV Ag/Ab Combo Qual Negative 02/08/25 16:22 02/08/25 16:22 Response Orders (Tests/Meds): ED MEDICATIONS Generic Name Dose Route Start Last Admin Trade Name Freq PRN Reason Stop Dose Admin Dicyclomine HCl 20 mg 02/08/25 18:47 Dicyclomine 10mg Capsule PO 03/10/25 18:46 Q6HP PRN abdominal pain Lactated Ringer's 1,000 mls @ 100 mls/hr 02/08/25 19:00 Lactated Ringer's 1000 Ml Bag IV 02/09/25 04:59 .Q10H [facility] Insulin Human Lispro 0 unit 02/08/25 21:00 Humalog 100 Units/Ml 10ml Vial (Ssi) SUBCUT 03/10/25 20:59 ACHS LIDNA Protocol Sodium Chloride 10 ml 02/08/25 16:32 Sodium Chloride 0.9% 10ml Vial IV 03/10/25 16:31 NEEDED PRN dilute protonix Sodium Chloride 10 ml 02/08/25 17:09 02/08/25 17:12 Sodium Chloride 0.9% 10ml Syr (Rad Only) IV 03/10/25 17:08 10 ml NEEDED PRN Administration Maintain IV Site Discontinued Medications Generic Name Dose Route Start Last Admin Trade Name Freq PRN Reason Stop Dose Admin Hydromorphone HCl 0.5 mg 02/08/25 16:32 02/08/25 16:58 Hydromorphone 2mg/Ml Syringe IV 02/08/25 16:33 0.5 mg ONCE ONE Administration Hydromorphone HCl 0.5 mg 02/08/25 18:30 02/08/25 18:38 Hydromorphone 2mg/Ml Syringe IV 02/08/25 18:31 0.5 mg ONCE ONE Administration Sodium Chloride 1,000 mls @ 999 mls/hr 02/08/25 16:05 02/08/25 16:59 Sod Chlor 0.9% 1000ml Bag IV 02/08/25 17:05 999 mls/hr .Q1H1M ONE Administration Iopamidol 90 ml 02/08/25 17:09 02/08/25 17:11 Iopamidol-370 (76%);100ml Bottle IV 02/08/25 17:10 90 ml ONCE ONE Administration Ketorolac Tromethamine 15 mg 02/08/25 16:32 02/08/25 16:58 Ketorolac 30mg/Ml Vial IV 02/08/25 16:33 15 mg ONCE ONE Administration Pantoprazole Sodium 40 mg 02/08/25 16:32 02/08/25 16:58 Pantoprazole 40mg Vial IV 02/08/25 16:33 40 mg ONCE ONE Administration Sodium Chloride 50 ml 02/08/25 17:09 02/08/25 17:11 0.9 % Sodium Chloride 50 Ml Vial IV 02/08/25 17:10 50 ml ONCE ONE Administration ORDERS Category Date Time Status CT angio abdomen pelvis Stat Cat Scan 02/08/25 16:05 Completed CTA Chest [CT angio chest - dissection] Stat Cat Scan 02/08/25 16:05 Completed Complete Blood Count Auto Diff AMLAB Lab 02/09/25 06:00 Ordered Complete Blood Count Auto Diff Stat Lab 02/08/25 16:22 Completed Comprehensive Metabolic Panel AMLAB Lab 02/09/25 06:00 Ordered Comprehensive Metabolic Panel Stat Lab 02/08/25 16:22 Completed Diarrhea 6-11 Panel, Cdiff PCR Stat Lab 02/08/25 18:13 Ordered HIV Combo Stat Lab 02/08/25 16:34 Completed Hemoglobin A1C Stat Lab 02/08/25 16:22 Completed Hepatitis C Ab Qual. W/ RFX Stat Lab 02/08/25 16:34 Received Lipase Stat Lab 02/08/25 16:22 Completed Lipid Panel Stat Lab 02/08/25 16:22 Completed Magnesium AMLAB Lab 02/09/25 06:00 Ordered PT INR [Prothrombin Time INR] Stat Lab 02/08/25 16:34 Completed PTT [Activated Partial Thrombo Time] Stat Lab 02/08/25 16:34 Completed T4 (Thyroxine) Stat Lab 02/08/25 16:22 Completed TSH [Thyroid Stimulating Hormone] Stat Lab 02/08/25 16:22 Completed Troponin I Q3H Lab 02/08/25 19:15 Ordered Troponin I Q3H Lab 02/08/25 22:15 Ordered Troponin I Stat Lab 02/08/25 16:22 Completed Urinalysis and Microscopic Stat Lab 02/08/25 18:28 Received Blood Culture Stat Micro 02/08/25 17:28 Received Venous Blood Gas Stat RT 02/08/25 16:27 Completed MDM Narrative Medical Decision Narrative: 64-year-old male no relevant medical history, reported, although he does not see a medical doctor presenting with vomiting, abdominal pain. He states that he started having vomiting 3 days prior to this on 02/05. Since that time, he is developed moderate to severe abdominal pain. Left-sided at his left lower quadrant and left upper quadrant. Made worse with application of pressure. No fevers or chills or systemic signs or symptoms. Last bowel movement was just before arrival. He states he is also been having diarrhea for the last 2 days. No blood in his vomit or stool. He does have an umbilical hernia, he states that it has not been reducible for years and that is not new. Not having any particular pain over the hernia, but he states that it always hurts somewhat. Has not taken anything for the pain. Called EMS for transport to the hospital given 10 out of 10 pain. They arrived and patient was waiting outside asking for pain medication. Diaphoretic, pale. Got 100 mcg of fentanyl as well as 4 of Zofran and some normal saline fluid. Pain went from 10 out of 10 to 4 out of 10. Glucose right around 200 with them. Brought to the ED today for further evaluation. History was obtained via conversation with patient and EMS. On arrival, patient hemodynamically stable, alert, oriented x4, appropriate, GCS 15, moving all extremities spontaneously, pupils equal and reactive to light. Full physical exam performed and significant for chronically ill-appearing male who is in no acute distress. Speaking in full sentences. Hypertensive, mildly tachycardic. Disheveled, malodorous. Abdomen is soft, distended, tender in left lower quadrant left upper quadrant, no evidence of guarding, peritonitis. He does have an umbilical hernia that is irreducible and mildly tender with attempts at reducing. No overlying skin changes. Seems to be out of proportion to abdominal exam. Differential includes ACS, ND gastritis, enteritis, gastroenteritis, pancreatitis, dissection, mesenteric ischemia, PUD, among others. Patient was given Toradol, Dilaudid, Protonix for symptomatic management and correction of underlying abnormalities. Patient placed on continuous cardiac monitoring and continuous pulse ox with initial blood pressure 117/68, heart rate 97, saturation 95% on room air. Independent interpretation of EKG shows sinus tachycardia 102 bpm with [place] 180, QRS 78, QTc 365. No acute ischemic change workup independently interpreted and significant for leukocytosis of 12 with relative neutrophilia. Patient's coags nonactionable. VBG with lactic acidosis of 3.0, bicarb low at 20 but normal pH and normal CO2. Chemistry with normal kidney function. A1c elevated at 9.2 consistent with undiagnosed diabetes. Anion gap is normal. Patient's troponin negative, lipase also negative. On independent interpretation of imaging, no obvious intra-abdominal abnormality. Colon on the left side is mildly inflamed, no evidence of perforation, diverticulitis, or other acute intra-abdominal abnormality. Periumbilical hernia seems to only contain fat. No evidence of obstruction. See radiology read for full review of final results. Heart score 4. Reevaluation, patient still in significant pain. Stool sample was ordered, more Dilaudid was administered. Patient's abdomen is distiller. I feel this is likely the result of severe abdominal pain with intractable in the setting of gastroenteritis. Because no signs of ischemia, or intra-abdominal surgical pathology found on CT imaging, hospital medicine was contacted and case was discussed at length for pain control in the setting of severe gastroenteritis. Graciously accepted patient for admission. Because patient high risk for clinical decompensation, deemed appropriate for inpatient admission. Results were relayed to patient who voiced understanding and patient was agreeable to inpatient admission and management. Patient was admitted to the hospital for further definitive management. Director [employer] disclaimer Much of this encounter note is an electronic manager wound spoken language to printed text. Electronic manager wound of the spoken language may permit errors. Although I have reviewed the note, some errors may still exist.
[2025-02-08 16:34] LABS: VBG Base Excess -5.8 mmol/L (-2.4-2.3); VBG Oxygen Saturation 96.9 % (50-70); VBG PCO2 38.2 mmol/L (35-51); VBG PH 7.34 mmol/L (7.31-7.41); VBG PO2 88.8 mmol/L (28-40); VBG Total CO2 21.2 mmol/L (23-27)
[2025-02-08 16:34] LABS: Basophils % 0.2 % (0.1-2.0); Eosinophils # 0.1 Kmm3 (0.0-0.4); Eosinophils % 0.5 % (0.1-12.0); Hematocrit 50.1 % (42.0-52.0); Immature Granulocytes # 0.04 10^3uL; Immature Granulocytes % 0.3 %; Lymphocytes # 1.1 K/mm3 (0.7-4.5); Lymphocytes % 9.1 % (10-50); Mean Corpuscular HGB Conc 33.9 g/dL (31.8-35.4); Mean Corpuscular Hemoglobin 30.4 pg (27.0-31.2); Mean Corpuscular Volume 89.6 fl (80-94); Mean Platelet Volume 11.7 fl (7.4-10.4); Monocytes # 0.8 K/mm3 (0.1-1.0); Monocytes % 6.7 % (1.7-9.3); Neutrophils % 83.2 % (37.0-80.0); Nucleated Red Blood Cells # 0 10^3/uL; Nucleated Red Blood Cells % 0 %; Platelet Count 244 K/mm3 (142-424); Red Blood Count 5.59 M/mm3 (4.60-6.20); Red Cell Distribution Width 12.6 % (11.5-17.5); Red Cell Distribution Width-SD 41.4 fL
[2025-02-08 16:49] LABS: Albumin Level 4.4 g/dl (3.5-5.0); Chloride 108 mmol/L (98-107); Sodium 137 mmol/L (136-145)
[2025-02-08 16:50] LABS: Potassium 3.7 mmoL/L (3.5-5.1)
[2025-02-08 16:52] LABS: Alanine Aminotransferase 32 U/L (12-78); Albumin/Globulin Ratio 1.4 (1.1-1.8); Alkaline Phosphatase 70 U/L (38-126); Anion Gap 11.7 mEq/L (5-15); Aspartate Amino Transferase 29 U/L (17-59); Bilirubin,Total 0.8 mg/dl (0.2-1.3); Blood Urea Nitrogen 15 mg/dl (9-20); Carbon Dioxide 21 mmol/L (22.0-30.0); Creatinine Clearance Estimated 98 mL/min (50-200); Estimated Glomerular Filt Rate 97 ml/min (>60); GFR (African American) 117 ML/MIN (>60); Globulin 3.1 g/dL (1.3-3.2); Lipase 78 U/L (23-300); Total Protein,Serum 7.5 g/dl (6.3-8.2)
[2025-02-08 16:53] LABS: Calcium 9.4 mg/dl (8.4-10.2); Chol/HDL Ratio 5.1 (1-3.5); Cholesterol 188 mg/dl (140-200); Glucose 189 mg/dl (74-100); HDL Cholesterol 37 mg/dl (40-60); Triglycerides 195 mg/dl (30-150); VLDL Cholesterol 39 mg/dL (0-40)
[2025-02-08] MEDS: KETOROLAC 30MG/ML VIAL 15 MG IV (16:58)
[2025-02-08] MEDS: PANTOPRAZOLE 40MG VIAL 40 MG IV (16:58)
[2025-02-08] MEDS: HYDROMORPHONE 2MG/ML SYRINGE 0.5 MG IV ×2 (16:58→18:38)
[2025-02-08] MEDS: 0.9 % SODIUM CHLORIDE 1000ML 1,000 ML 999 ML IV (16:59)
[2025-02-08 17:04] LABS: Direct LDL Cholesterol 108.27 mg/dL (100-129)
[2025-02-08 17:10] LABS: T4 (Thyroxine) 5.5 ug/dl (5.53-11.0)
[2025-02-08] MEDS: 0.9 % SODIUM CHLORIDE 50 ML VIAL IV (17:11)
[2025-02-08] MEDS: IOPAMIDOL-370 (76%);100ML BOTTLE 90 ML IV (17:11)
[2025-02-08] MEDS: SODIUM CHLORIDE 0.9% 10ML SYR (RAD ONLY) 10 ML IV (17:12)
[2025-02-08 17:15] LABS: Hemoglobin A1C 9.2 % (4.0-6.0); Troponin I < 0.01 ng/ml (0.00-0.034)
[2025-02-08 17:23] LABS: Thyroid Stimulating Hormone 1.38 uIU/mL (0.465-4.68)
[2025-02-08 17:25] LABS: INR 0.98 (0.9-1.1); Prothrombin Time 10.9 seconds (10.1-12.5)
[2025-02-08 18:30] LABS: Microscopic, Urine URINE MICROSCOPIC (MICROSCOPIC)
[2025-02-08 18:31] LABS: Appearance,Urine CLEAR (Clear); Bilirubin,Urine Negative (Negative); Blood, Urine Negative (Negative); Color,Urine YELLOW (Yellow); Glucose,Urine (UA) Negative (Negative); Ketones,Urine Negative (Negative); Leukocyte Esterase,Urine Negative (Negative); Nitrate,Urine Negative (Negative); PH,Urine 5.5 (5.0-8.5); Protein,Urine TRACE (Negative); Urobilinogen,Urine 0.2 EU/dl (0.2)
[2025-02-08 18:32] LABS: HIV Combo NEGATIVE (Negative)
[2025-02-08 18:51] LABS: Amorphous Sediment,Urine Trace /lpf; Bacteria,Urine Trace /lpf; Fine Granular Casts,Urine Occasional #/lpf (0); Mucus,Urine 2+ /lpf; RBC,Urine Occasional #/hpf (0-3); Squamous Epithelial Cell,Urine Occasional #/hpf (0-5); WBC,Urine Occasional #/hpf (0-3)
--- NOTE | 2025-02-08 19:21 | PC.NURSE ---
rounded on pt. pt voices no needs.
[2025-02-08 19:38] LABS: Hepatitis C Ab Qual. W/ RFX REACTIVE (Negative)
[2025-02-08 19:54] LABS: Troponin I < 0.01 ng/ml (0.00-0.034)
--- NOTE | 2025-02-08 19:59 | P.HP_ITS ---
<Statement entered by Gui Raymundo MD - 02/09/25 10:56> Rounded on patient after nurse practitioner. Personally examined and interviewed patient. Agree with exam findings and care plan as documented. Stool panel pending. Continues to have pain in the morning. Will slowly advance diet. History of Present Illness *Admission Date: 02/08/25 *Reason for visit:: Abdominal pain with diarrhea new onset diabetes mellitus *History of present illness: This patient whose had abdominal pain for 3 days with a lot of diarrhea, stating that basically left upper quadrant to the umbilicus where he has a old hernia. That has not changed in any time, patient states he is homebound because he does not have a car.. That he normally would see Dr. Brito at [place]. He noted that he did also have chest tubes approximately 4 years ago on the left side. Approximately 3 weeks ago he ended up having several dogs that were ill for of them he treated them as if it was parvovirus 1 dog did live and is in the house with him with 5 other dogs and 7 cats. EMS that picked him up gave a report that the inside of the house was quite cluttered. Patient also has been diagnosed with having diabetes mellitus hemoglobin A1c of 9.7. Still is not year if he knew he had diabetes. Has had elevated blood sugars on every lab drawn since the early 1999. After Dr. Raymundo have spoken with the ER physician we will be admitting., Looking at the fact has been exposed to so many animals will also give Levaquin to treat if it is a abdominal bacterial infection related to being exposed to the animals. Also will place him on sliding scale and start to treat his diabe fouzia. Will add Pepto-Bismol as needed to try to stop the diarrhea also waiting for stool specimen. 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 [facility] Disclaimer: The information contained in this section may have been updated after the patient was seen, as this information can be updated by other users. Medical History Pneumonia Obesity (BMI 35.0-39.9 without comorbidity) Umbilical hernia Surgical History H/O chest tube placement Social History (Updated 02/08/25 @ 22:08 by Brittany Chester RN) Smoking Status: Never smoker alcohol intake: never substance use type: marijuana current occupational status: other Travel in the last 8 weeks?: None Have you lived/traveled outside US in past 30 days?: No Contact w/someone who lives/traveled outside US past 30 days?: No Exposure to someone with infectious disease in past 14 days?: No Do you have a fever (greater than 100.4 F or 38 C)?: No Have you tested positive for COVID-19?: No Exposed to someone with COVID-19 in past 14 days?: No Do you have a sore throat?: No Do you have a cough?: No Do you have any weakness?: No Do you have any diarrhea?: No Are you experiencing any unusual bleeding?: No Do you have any muscle aches/pain?: No Do you have any abdominal pain?: No Are you experiencing loss of taste or smell?: No Review of Systems Review of Systems Review of systems:: pertinent systems reviewed and negative unless documented below Constitutional Constitutional: Reports as per HPI Eyes Eyes: Reports as per HPI ENT Ears, Nose, Mouth, and Throat: Reports as per HPI *Cardiovascular Cardiovascular: Reports as per HPI *Respiratory Respiratory: Reports as per HPI *Gastrointestinal Gastrointestinal: Reports as per HPI, Reports abdominal pain, Reports fecal incontinence, Reports nausea and Reports vomiting *Genitourinary Genitourinary: Reports as per HPI *Musculoskeletal Musculoskeletal: Reports as per HPI Integumentary/Breasts Skin/Breast: Reports as per HPI *Neurologic Neurologic: Reports as per HPI Psychiatric Psychiatric: Reports as per HPI Endocrine Endocrine: Reports as per HPI Hematologic/Lymphatic Hematologic/Lymphatic: Reports as per HPI Allergic/Immunologic Allergic/Immunologic: Reports as per HPI Meds Home Medications and Allergies Home Medications ?Medication ?Instructions ?Recorded ?Confirmed ?Type No Known Home Medications 02/09/2501/24 History New Prescriptions to Start Prescriptions: Allergies Allergy/AdvReac Type Severity Reaction Status Date / Time No Known Allergies Allergy Verified 01/25/23 19:01 Exam Data for Last 24 hours Vital signs and Labs for Last 24 Hours: Temp Pulse Resp BP Pulse Ox O2 Del Method 98.7 F 90 13 139/92 H 96 Room Air 02/08/25 19:49 02/08/25 19:49 02/08/25 19:49 02/08/25 19:49 02/08/25 19:30 02/08/25 19:49 Laboratory Results - last 24 hr 02/08/25 16:22: WBC 12.0 H, RBC 5.59, Hgb 17.0, Hct 50.1, MCV 89.6, MCH 30.4, MCHC 33.9, RDW 12.6, Plt Count 244, MPV 11.7 H, Neut % (Auto) 83.2 H, Lymph % (Auto) 9.1 L, Weld % (Auto) 6.7, Eos % (Auto) 0.5, Baso % (Auto) 0.2, Neut # (Auto) 10.0 H, Lymph # (Auto) 1.1, Weld # (Auto) 0.8, Eos # (Auto) 0.1, Baso # (Auto) 0.0, Sodium 137, Potassium 3.7, Chloride 108 H, Carbon Dioxide 21 L, Anion Gap 11.7, BUN 15, Creatinine 0.80, Estimated Creat Clear 98, Estimated GFR 97, Est GFR ( Amer) 117, Glucose 189 H, Hemoglobin A1c 9.2 H, Calcium 9.4, Total Bilirubin 0.8, AST 29, ALT 32, Alkaline Phosphatase 70, Troponin I < 0.01, Total Protein 7.5, Albumin 4.4, Globulin 3.1, Albumin/Globulin Ratio 1.4, Triglycerides 195 H, Cholesterol 188, LDL Cholesterol Direct 108.27, VLDL Cholesterol 39, HDL Cholesterol 37 L, Cholesterol/HDL Ratio 5.1 H, Lipase 78, TSH 1.38, Thyroxine (T4) 5.5 L 02/08/25 16:27: VBG pH 7.34, VBG pCO2 38.2, VBG pO2 88.8 H, VBG HCO3 20.0 L, VBG Total CO2 21.2 L, VBG O2 Saturation 96.9 H, VBG Base Excess -5.8 L, VBG Lactic Acid 3.0 H 02/08/25 16:34: PT 10.9, INR 0.98, APTT 22.0 L, HCV Ab DAYANA w/Rflx PCR Qn Reactive, HIV Ag/Ab Combo Qual Negative 02/08/25 18:28: Urine Color Yellow, Urine Appearance Clear, Urine pH 5.5, Ur Specific [place] 1.020, Urine Protein Trace, Urine Glucose (UA) Negative, Urine Ketones Negative, Urine Blood Negative, Urine Nitrate Negative, Urine Bilirubin Negative, Urine Urobilinogen 0.2, Ur Leukocyte Esterase Negative, Urine RBC Occasional, Urine WBC Occasional, Ur Squamous Epith Cells Occasional, Amorphous Sediment Trace, Urine Bacteria Trace, Fine Granular Casts Occasional, Urine Mucus 2+ 02/08/25 19:23: Troponin I < 0.01 I & O for Last 24 hours: Intake & Output 02/06/25 02/07/25 02/08/25 02/09/25 05:59 05:59 05:59 05:59 Weight 210 lb Radiology Reports for the Last 24 Hours: No acute findings on CT scan of lungs or abdomen Constitutional Constitutional: mild distress, morbidly obese and cooperative *Routine HEENT Exam Head: Present normocephalic and atraumatic Eye: Present EOMI and PERRL ENT: Present mucous membranes moist Comments: Multiple dental decay has very few teeth left *Routine Neck Exam Neck: Present supple and full ROM *Routine Respiratory Exam Respiratory: Present CTA bilaterally, normal respiratory effort, able to speak in complete sentences and symmetric chest movement *Routine Cardiovascular Exam Cardiovascular: Present RRR, Normal S1, Normal S2 and tachycardia *Routine Abdominal Exam Abdominal: Present soft, tenderness, guarding and obese *Routine Rectal Exam Rectal:: deferred *Routine Genitalia Exam Genitalia:: deferred *Routine Extremities Exam Extremities: Present full ROM, pulses intact and normal capillary refill *Routine Skin Exam Skin: Present intact, dry and warm *Routine Neurological Exam Neurological: Present alert, oriented X3, CN II-XII intact, vision grossly intact and hearing grossly intact Comments: While sitting in the exam room he was doodling able to draw a very intricate pictures of trees and animals with a simple with a pen Routine Psychiatric Exam Psychiatric: Present normal affect, normal thought process, cooperative, good insight and good judgment H&P: Result Impressions 1. Gastroenteritis, possibly related to having dogs and cats in the house. And some of the animals had been quite ill with several of them dying in the past 3 weeks 2. Diabetes mellitus with unclear that the patient was aware of this. Has not been being treated 3. Self-care deficit is that he does not have a vehicle to get around has to rely on other people to take him places Imaging and Cardiology CT scan - abdomen: Additional comments: No acute findings on CT scan Assessment and Plan *Assessment and plan (1) Intractable abdominal pain: Status: Acute Category: Medical Code(s): R10.9 - Unspecified abdominal pain (2) Vomiting and diarrhea: Status: Acute Category: Medical Code(s): R11.10 - Vomiting, unspecified; R19.7 - Diarrhea, unspecified (3) Diabetes mellitus: Status: Acute Qualifiers: Diabetes mellitus complication status: without complication Diabetes mellitus consumer studies professor insulin use: without consumer studies professor use Diabetes mellitus type: type 2 Qualified Code(s): E11.9 - Type 2 diabetes mellitus without complications Category: Medical Code(s): E11.9 - Type 2 diabetes mellitus without complications (4) Umbilical hernia: Status: Acute Qualifiers: Obstruction and gangrene presence: without obstruction or gangrene Qualified Code(s): K42.9 - Umbilical hernia without obstruction or gangrene Category: Medical Code(s): K42.9 - Umbilical hernia without obstruction or gangrene (5) Obesity (BMI 35.0-39.9 without comorbidity): Status: Acute Category: Medical Code(s): E66.9 - Obesity, unspecified (6) HCV antibody positive: Status: Acute Category: Medical Code(s): R76.8 - Other specified abnormal immunological findings in serum Plan 1. Patient will be admitted to the hospital. Will continue with pain control as needed. Patient had been around several dogs that have been sick, question cross-contamination. Will add Levaquin p.o. to see if this will improve just due to plain dysentery., Also will add Pepto-Bismol, and will consult to general surgery are gastroenterology as needed 2. New onset diabetes mellitus will set up treatment resume and get blood sugar in control and then refer back to primary care to take over adjustments as needed. 3. Lab test comes back showing positive HCV viral antibodies. Will add PCR test in, and treat as needed. 4. Case management consult put in to evaluate needs and home on discharge.,
--- NOTE | 2025-02-08 20:13 | PC.NURSE ---
Patient arrived to floor via wheelchair from ED at 20:12.
[2025-02-08 20:36] LABS: Reflex Lactic Add Lactic Reflex
[2025-02-08] MEDS: levoFLOXacin 500MG TAB 500 MG PO (21:20)
[2025-02-08] MEDS: LACTATED RINGERS 1000ML 1,000 ML 100 ML IV (21:20)
[2025-02-08] MEDS: DICYCLOMINE 10MG CAPSULE 20 MG PO (21:45)
[2025-02-08] MEDS: humaLOG 100 UNITS/ML 10ML VIAL (SSI) SUBCUT (21:45)
[2025-02-08 21:47] LABS: POC Glucose,Bedside 180 (70-110)
[2025-02-08 22:06] LABS: Lactic Acid Follow Up (RFLX 1) 1.9 mmol/L (0.7-2.1)
[2025-02-08 22:20] LABS: Troponin I < 0.01 ng/ml (0.00-0.034)
[2025-02-08] MEDS: PROMETHAZINE HCL 25MG/ML 1ML VIAL 12.5 MG IV (23:35)
[2025-02-08] MEDS: SODIUM CHLORIDE 0.9% 25ML BAG 25 ML IV (23:35)
[2025-02-08] MEDS: HYDROMORPHONE 2MG/ML SYRINGE 1 MG IV (23:35)
[2025-02-09 04:00] VITALS: BP 142/81; PULSE 89; RESP 17; TEMP 36.6; O2SAT 94; BMI 29.1
[2025-02-09 04:55] LABS: Adenovirus F 40/41, stool Not Detected (NotDetected); Astrovirus Not Detected (NotDetected); Campylobacter Not Detected (NotDetected); Clostridium Difficile A/B, PCR Not Detected (NotDetected); Cryptosporidium Not Detected (NotDetected); Cyclospora Cayetanesis Not Detected (NotDetected); Entamoeba histolytica Not Detected (NotDetected); Enteroaggregative E coli Not Detected (NotDetected); Enterotoxigenic E coli Not Detected (NotDetected); Giardia lamblia Not Detected (NotDetected); Norovirus Not Detected (NotDetected); Plesimonas Shigalloides, PCR Not Detected (NotDetected); Rotavirus A Not Detected (NotDetected); Salmonella, PCR Not Detected (NotDetected); Sapovirus Not Detected (NotDetected); Shiga-like toxin E coli Not Detected (NotDetected); Shigella Enterovasive E coli Not Detected (NotDetected); Vibrio Cholerae Not Detected (NotDetected); Vibrio, PCR Not Detected (NotDetected); Yersinia Entercolitica, PCR Not Detected (NotDetected)
[2025-02-09] MEDS: humaLOG 100 UNITS/ML 10ML VIAL (SSI) SUBCUT ×2 (06:08→17:14)
[2025-02-09 06:11] LABS: POC Glucose,Bedside 180 (70-110)
[2025-02-09 07:37] LABS: Albumin Level 3.3 g/dl (3.5-5.0); Chloride 111 mmol/L (98-107)
[2025-02-09 07:38] LABS: Potassium 3.8 mmoL/L (3.5-5.1); Sodium 137 mmol/L (136-145)
[2025-02-09 07:39] LABS: Basophils % 0.5 % (0.1-2.0); Eosinophils # 0.2 Kmm3 (0.0-0.4); Eosinophils % 3.3 % (0.1-12.0); Hematocrit 43.4 % (42.0-52.0); Immature Granulocytes # 0.02 10^3uL; Immature Granulocytes % 0.3 %; Lymphocytes # 1.6 K/mm3 (0.7-4.5); Lymphocytes % 25.7 % (10-50); Mean Corpuscular HGB Conc 33.2 g/dL (31.8-35.4); Mean Corpuscular Hemoglobin 30.4 pg (27.0-31.2); Mean Corpuscular Volume 91.6 fl (80-94); Mean Platelet Volume 11.6 fl (7.4-10.4); Monocytes # 0.7 K/mm3 (0.1-1.0); Monocytes % 11.7 % (1.7-9.3); Neutrophils # 3.6 K/mm3 (1.8-7.8); Neutrophils % 58.5 % (37.0-80.0); Nucleated Red Blood Cells # 0 10^3/uL; Nucleated Red Blood Cells % 0 %; Platelet Count 67 K/mm3 (142-424); Red Blood Count 4.74 M/mm3 (4.60-6.20); Red Cell Distribution Width 12.8 % (11.5-17.5); Red Cell Distribution Width-SD 42.9 fL; White Blood Count 6.2 K/mm3 (4.8-10.8)
[2025-02-09 07:40] LABS: Alanine Aminotransferase 26 U/L (12-78); Alkaline Phosphatase 59 U/L (38-126); Anion Gap 7.8 mEq/L (5-15); Aspartate Amino Transferase 25 U/L (17-59); Bilirubin,Total 0.3 mg/dl (0.2-1.3); Blood Urea Nitrogen 15 mg/dl (9-20); Carbon Dioxide 22 mmol/L (22.0-30.0); Creatinine Clearance Estimated 100 mL/min (50-200); Estimated Glomerular Filt Rate 113 ml/min (>60); GFR (African American) 137 ML/MIN (>60)
[2025-02-09 07:41] LABS: Albumin/Globulin Ratio 1.6 (1.1-1.8); Calcium 8.7 mg/dl (8.4-10.2); Globulin 2.1 g/dL (1.3-3.2); Glucose 185 mg/dl (74-100); Magnesium 1.8 mg/dl (1.6-2.3); Total Protein,Serum 5.4 g/dl (6.3-8.2)
[2025-02-09 07:53] LABS: Hemoglobin 14.1 g/dL (14.1-18.0)
[2025-02-09 08:00] VITALS: BP 142/80; PULSE 87; RESP 17; TEMP 36.4; O2SAT 98
[2025-02-09] MEDS: KETOROLAC 30MG/ML VIAL 30 MG IV ×2 (10:46→19:55)
--- NOTE | 2025-02-09 10:58 | P.PN_ITS ---
Subjective *Date: 02/09/25 *Time: 10:58 Interval history: Still having abdominal pain. Continues to complain of loose stools. Multiple diarrhea bowel movements overnight. Afebrile this morning. Stable on room air. No nausea or vomiting. Tolerating p.o. intake. White count normal. Stool panel obtained and pending Medical Exam Vital signs and Labs for Last 24 Hours: Vital Signs Temp Pulse Pulse Resp BP BP Pulse Ox 02/09/25 09:00 02/09/25 08:00 02/09/25 08:00 97.6 F 87 17 142/80 H 98 02/09/25 06:40 02/09/25 05:00 02/09/25 04:00 97.9 F 89 17 142/81 H 94 L 02/09/25 03:00 02/09/25 01:00 02/08/25 23:00 02/08/25 21:30 17 02/08/25 21:00 02/08/25 20:27 98.8 F 91 H 18 144/81 H 94 L 02/08/25 19:49 98.7 F 90 13 139/92 H 02/08/25 19:30 90 11 L 139/92 H 96 02/08/25 19:07 15 160/102 H 02/08/25 18:00 87 13 146/92 H 94 L 02/08/25 17:30 88 14 117/64 95 02/08/25 17:00 93 H 12 112/66 95 02/08/25 16:39 98.7 F 102 H 15 130/77 96 02/08/25 16:30 97 H 18 117/68 95 O2 Del Method 02/09/25 09:00 Room Air 02/09/25 08:00 Room Air 02/09/25 08:00 Room Air 02/09/25 06:40 Room Air 02/09/25 05:00 Room Air 02/09/25 04:00 Room Air 02/09/25 03:00 Room Air 02/09/25 01:00 Room Air 02/08/25 23:00 Room Air 02/08/25 21:30 Room Air 02/08/25 21:00 Room Air 02/08/25 20:27 Room Air 02/08/25 19:49 Room Air 02/08/25 19:30 02/08/25 19:07 02/08/25 18:00 02/08/25 17:30 02/08/25 17:00 02/08/25 16:39 Room Air 02/08/25 16:30 Intake and Output 02/08/25 02/09/25 02/09/25 23:59 07:59 15:59 Intake Total 2301 / 2641 340 / 2641 Output Total 100 / 100 Balance 2201 / 2541 340 / 2541 Intake: Intake, Oral Amount 894 / 1234 340 / 1234 Intake, Other Amount Infusion Intake 1382 / 1382 0.9 % Sodium Chloride 1000ML 1, 1000 / 1000 000 ml @ 999 mls/hr IV .Q1H1M ONE Rx#:[id number] Lactated Ringers 1000ML 1,000 382 / 382 ml @ 100 mls/hr IV .Q10H [facility] Rx #:[id number] Output: Output, Urine Amount 100 / 100 Other: Number of Unmeasured Voids 0 Number of Bowel Movements 1 1 Weight 94.71 kg 97.658 kg Patient Weight 02/09/25 23:59 Weight 97.658 kg Laboratory Results - last 24 hr 02/08/25 16:22: WBC 12.0 H, RBC 5.59, Hgb 17.0, Hct 50.1, MCV 89.6, MCH 30.4, MCHC 33.9, RDW 12.6, Plt Count 244, MPV 11.7 H, Neut % (Auto) 83.2 H, Lymph % (Auto) 9.1 L, [place] % (Auto) 6.7, Eos % (Auto) 0.5, Baso % (Auto) 0.2, Neut # (Auto) 10.0 H, Lymph # (Auto) 1.1, [place] # (Auto) 0.8, Eos # (Auto) 0.1, Baso # (Auto) 0.0, Sodium 137, Potassium 3.7, Chloride 108 H, Carbon Dioxide 21 L, Anion Gap 11.7, BUN 15, Creatinine 0.80, Estimated Creat Clear 98, Estimated GFR 97, Est GFR ( Amer) 117, Glucose 189 H, Hemoglobin A1c 9.2 H, Calcium 9.4, Total Bilirubin 0.8, AST 29, ALT 32, Alkaline Phosphatase 70, Troponin I < 0.01, Total Protein 7.5, Albumin 4.4, Globulin 3.1, Albumin/Globulin Ratio 1.4, Triglycerides 195 H, Cholesterol 188, LDL Cholesterol Direct 108.27, VLDL Cholesterol 39, HDL Cholesterol 37 L, Cholesterol/HDL Ratio 5.1 H, Lipase 78, TSH 1.38, Thyroxine (T4) 5.5 L 02/08/25 16:27: VBG pH 7.34, VBG pCO2 38.2, VBG pO2 88.8 H, VBG HCO3 20.0 L, VBG Total CO2 21.2 L, VBG O2 Saturation 96.9 H, VBG Base Excess -5.8 L, VBG Lactic Acid 3.0 H 02/08/25 16:34: PT 10.9, INR 0.98, APTT 22.0 L, HCV Ab DAYANA w/Rflx PCR Qn Reacti ve, HIV Ag/Ab Combo Qual Negative 02/08/25 18:28: Urine Color Yellow, Urine Appearance Clear, Urine pH 5.5, Ur Specific [place] 1.020, Urine Protein Trace, Urine Glucose (UA) Negative, Urine Ketones Negative, Urine Blood Negative, Urine Nitrate Negative, Urine Bilirubin Negative, Urine Urobilinogen 0.2, Ur Leukocyte Esterase Negative, Urine RBC Occasional, Urine WBC Occasional, Ur Squamous Epith Cells Occasional, Amorphous Sediment Trace, Urine Bacteria Trace, Fine Granular Casts Occasional, Urine Mucus 2+ 02/08/25 19:23: Troponin I < 0.01 02/08/25 21:33: POC Glucose 180 H 02/08/25 21:48: Lactate 1.9, Troponin I < 0.01 02/09/25 06:03: POC Glucose 180 H 02/09/25 06:36: WBC 6.2 D, RBC 4.74, Hgb 14.1 D, Hct 43.4, MCV 91.6, MCH 30.4, MCHC 33.2, RDW 12.8, Plt Count 67 L D, MPV 11.6 H, Neut % (Auto) 58.5, Lymph % (Auto) 25.7, [place] % (Auto) 11.7 H, Eos % (Auto) 3.3, Baso % (Auto) 0.5, Neut # ( Auto) 3.6, Lymph # (Auto) 1.6, [place] # (Auto) 0.7, Eos # (Auto) 0.2, Baso # (Auto) 0.0, Sodium 137, Potassium 3.8, Chloride 111 H, Carbon Dioxide 22, Anion Gap 7.8, BUN 15, Creatinine 0.70, Estimated Creat Clear 100, Estimated GFR 113, Est GFR ( Amer) 137, Glucose 185 H, Calcium 8.7, Magnesium 1.8, Total Bilirubin 0.3, AST 25, ALT 26, Alkaline Phosphatase 59, Total Protein 5.4 L D, Albumin 3.3 L D, Globulin 2.1, Albumin/Globulin Ratio 1.6 I & O for Labs for Last 24 Hours: Intake & Output 02/06/25 02/07/25 02/08/25 02/09/25 23:59 23:59 23:59 23:59 Intake Total 2641 / 2641 Output Total 100 / 100 Balance 2541 / 2541 Weight 94.71 kg 97.658 kg Constitutional: Present no acute distress, chronically ill appearing and cooperative Head: Present atraumatic and normocephalic ENT: Present normal exam Respiratory: Present normal respiratory effort; Absent rhonchi, stridor or wheezes Cardiac: Present Reg Rate and Rhythm GI: Present soft, tenderness (Nonfocal, mild) and normal bowel sounds; Absent distention Extremities: Present normal inspection and full ROM Skin: Present intact; Absent erythema Neuro: Present Grossly Intact, alert, awake, oriented x 3 and moves all extremi ties Assessment and Plan *Assessment and plan (1) Intractable abdominal pain: Status: Acute Category: Medical Code(s): R10.9 - Unspecified abdominal pain (2) Vomiting and diarrhea: Status: Acute Category: Medical Code(s): R11.10 - Vomiting, unspecified; R19.7 - Diarrhea, unspecified (3) Diabetes mellitus: Problem Comment: New diagnosis Status: Acute Qualifiers: Diabetes mellitus type: type 2 Diabetes mellitus exterminator helper insulin use: without halfway use Diabetes mellitus complication status: without complication Qualified Code(s): E11.9 - Type 2 diabetes mellitus without complications Category: Medical Code(s): E11.9 - Type 2 diabetes mellitus without complications (4) Umbilical hernia: Status: Acute Qualifiers: Obstruction and gangrene presence: without obstruction or gangrene Qualified Code(s): K42.9 - Umbilical hernia without obstruction or gangrene Category: Medical Code(s): K42.9 - Umbilical hernia without obstruction or gangrene (5) Obesity (BMI 35.0-39.9 without comorbidity): Status: Acute Category: Medical Code(s): E66.9 - Obesity, unspecified (6) HCV antibody positive: Status: Acute Category: Medical Code(s): R76.8 - Other specified abnormal immunological findings in serum Plan 64-year-old male who presents with abdominal pain, nausea and vomiting along with diarrhea. Admitted for gastroenteritis as well as new diagnosis of diabetes. A1c elevated on admission at 9. Case discussed with ER physician, request admission. Medicine agreed to admit for further care. Still having significant stool burden today. Adjusting diabetes regimen. Continues to require inpatient management. Problems addressed as follows: Gastroenteritis Nausea vomiting diarrhea - Diarrhea PCR obtained and pending. Further management pending results. Will consider treatment if infectious source identified versus Imodium to slow diarrhea if no treatable etiology - Continue Bentyl 20 mg every 6 hours as needed for crampy abdominal pain. Initiate Toradol 30 mg IV every 6 hours for pain and inflammation. - Received 100 mg dose Levaquin in the ER. Will reevaluate antibiotics pending stool panel. - Advance diet as tolerated - White count normal at 6.2, hemoglobin 14.1. Thrombocytopenia: Platelets 67. Suspect secondary to liver dysfunction with his history of HCV. Kidney function normal with BUN 15, creatinine 0.7, potassium 3.8 magnesium 1.8. Repeat CBC, CMP, magnesium ordered for the more. Will replace electrolytes per protocol if needed New onset diabetes: A1c greater than 9. Initiated on sliding scale insulin with fingersticks ACHS. Will initiate once daily long-acting insulin this evening with 10 units. Metformin contraindicated due to GI symptoms. Morning glucose 185. Full code Diabetic diet Prophylactic Lovenox
[2025-02-09 11:14] LABS: POC Glucose,Bedside 150 (70-110)
[2025-02-09 11:55] LABS: Enteropathogenic E coli Detected (NotDetected)
--- OUTSIDE RECORDS SUMMARY | 2025-02-09 15:19 | XMS_ITS | Clinical Summary ---
Author Organization [facility] Address [address] [place] [phone] Phone Care Team Providers Care Woodworker Name Role Phone Madelin Diop PA-C Primary Care Physician [phone] [ ] Conditions or Problems Problem Name Problem Code Onset Date Status Entry Date Provider Comment Standard Description Annotate UMBILICAL HERNIA 469327684 (SNOMED CT) 03/02 Active 03/02 Madelin Diop PA-C Umbilical hernia ELEVATED BP READING WITHOUT DX HYPERTENSION R03.0 (ICD-10-CM ) 03/02 Active 03/02 Madelin Diop PA-C Elevated blood-pressure reading, without diagnosis of hypertension HYPOTHYROIDIS M 15100502 (SNOMED CT) 03/02 Active 03/02 Madelin Diop PA-C Hypothyroidism HELICOBACTER PYLORI GASTRITIS 45714272 (SNOMED CT) 03/02 Active 03/02 Madelin Diop PA-C Helicobacter-asso ciated gastritis GERD 966426159 (SNOMED CT) 03/02 Active 03/02 Madelin Diop PA-C Gastroesophageal reflux disease HYPERLIPIDEMI A 04461034 (SNOMED CT) 03/02 Active 03/02 Madelin Diop PA-C Hyperlipidemia SHOULDER PAIN 61758275 (SNOMED CT) 03/02 Active 03/02 Madelin Diop PA-C Pain of shoulder region NECK PAIN 08092365 (SNOMED CT) 03/02 Active 03/02 Madelin Diop [...] 6 HOURS NEEDED FOR NAUSEA PROMETHAZINE HCL 26273973430 Madelin Diop PA-C PYLERA 140-125-125 MG CAPS TAKE 1 CAPSULE BY MOUTH 4 TIMES A DAY BIS SUBCIT-METRONID- TETRACYC [id number] Madelin Diop PA-C METOCLOPRAMIDE HCL 10 MG TABS TAKE 1 TABLET BY MOUTH 4 TIMES A DAY NEEDED METOCLOPRAMIDE HCL 00284783535 Madelin Diop PA-C NEXIUM 40 MG CPDR TAKE 1 CAPSULE BY MOUTH ONCE A DAY ESOMEPRAZOLE MAGNESIUM 63480366050 Madelin Diop PA-C CRESTOR 10 MG TABS TAKE 1 TABLET BY MOUTH EVERY NIGHT ROSUVASTATIN CALCIUM 76208084084 Madelin Diop PA-C Medications Administered No information available. Allergies, Adverse Reactions, Alerts Allergy Name Reaction Description Start Date Severity Statu s Provider CLONIDINE RASH Critical Active Madelin poe PA-C PCN DOESN'T KNOW Critical Active Madelin dunn PA-C Results No information available. Plan of Care Type Date Detail Referral Pain Management Ref [facility] Pain Management -Dr. Arellano in [place] Titus Connolly MD, [address], [place], [address] Procedures Code Procedure Name Date Entry Date LOVE SALGADO PAIN Pain Management Ref [facility] Pain Management -Dr. Arellano in [place] Vital Signs Date Name Value Unit Description [...]
--- OUTSIDE RECORDS SUMMARY | 2025-02-09 15:20 | XMS_ITS | Encounter Summary ---
Author Organization [place] [address] Care Team Providers Care Consumer Loan Specialist Name Role Phone [employer] [place] Primary Care Provider Luis Fang DO Primary Care Provider [phone] Marla Callahan RN Unavailable Jacey huang Encounter Details Date Type Department Care Team (Late st Contact Info) Description 03/26/2018 Patient Outreach [facility] [address] [place] [address] Sarita Ortiz DO [address] [place] [address] Social History Tobacco Use Types [...] documented as of this encounter Care Teams Consumer Loan Specialist Relationship Specialty Start Date End Date [place], [place] PCP - General 03/26/18 11/24/18 Luis Brito DO [address] [place] [address] PCP - General Family Medicine 11/25/18 Marla Callahan, LAVON Gallery Or Museum Curator Registered Nurse 05/16/2004/27 documented as of this encounter
--- OUTSIDE RECORDS SUMMARY | 2025-02-09 15:20 | XMS_ITS | Encounter Summary ---
Author Organization [place] [address] Care Team Providers Care Sugar Cane Planter Name Role Phone Sarita Ortiz DO Primary Care Provide r [place], [place] Primary Care Provider Luis Fang DO Primary Care Provider [phone] Marla Callahan RN Unavailable Jacey haung Encounter Details Date Type Department Care Team (Late st Contact Info) Description 02/20/2018 Patient Outreach [facility] [address] [place] [address] Sarita Ortiz DO [address] [place] [address] Social History Tobacco Use Types [...] documented as of this encounter Care Teams Sugar Cane Planter Relationship Specialty Start Date End Date Sarita Ortiz DO [address] [place] [address] PCP - General Family Medicine 10/05/16 03/25/18 [facility] [address] [place] [address] PCP - General 03/26/18 11/24/18 Luis Brito [place] [address] PCP - General Family Medicine 11/25/18 Marla Callahan, RN Food And Beverage Cashier Registered Nurse 05/16/2004/27 documented as of this encounter
--- OUTSIDE RECORDS SUMMARY | 2025-02-09 15:20 | XMS_ITS | Clinical Summary ---
Author Organization [facility] Address [address] [address] Care Team Providers Care Senior Site Manager Name Role Phone Unavailable Primary Care Provider [...]
--- OUTSIDE RECORDS SUMMARY | 2025-02-09 15:20 | XMS_ITS | Clinical Summary ---
Author Organization [facility] Address [address] [place] [address] Phone Care Team Providers Care Assistant Professor Of Surgery Name Role Phone Luis Brito DO Primary Care Provider [phone] Allergies Active Allergy Reactions Criticality Noted Date [...] from the original. NO CONTROLLED MEDS- [facility] 6.13.17 csta 04/08/2012 Opioids 04/08/2012 Benzo 04/08/2012 soapp (4) 04/08/2012 Gerard 01/10/16#[id number],03/05/16([id number]) [facility] - Javy Camacho MD Interventional Pain Protocol: Gerard report completed (EVERY 3 MONTHS) (12/19/2021) Pharm[facility] [id number] [place] [address] - [address] - [phone] Spine Center additional info (Transportation, WC, Compound, No Show, PPW) HCC audit completed by Velia Regan RN on 12/20/2022. Problem Noted Date Diagnosed Date Pleurisy with effusion 05/01/2020 Sepsis without acute organ dysfunction 0 Abnormality of heart valve 04/29/2020 Overview (05/06/2020): Added automatically from request for surgery [id number] FH: colon cancer in relative diagnosed at [...] and Decortication; Surgeon: Abby Leslie MD; Location: ED MAIN OR; Service: Thoracic Medical History Medical [...] 2 diabetes mellitus without complication, unspecified whether termite helper insulin use (HCC) DM type 2 with [...] 09/06/2023 12:04 PM EST [facility] Microalb/Harvest Worker. Ratio <30 <30 mg/g 09/06/2023 12:04 PM EST [facility] Urine URINE SPECIMEN COLLECTION / Unknown 09/06/2023 12:02 PM EST 09/06/2023 12:04 PM EST [facility] DO POINT OF CARE TEST ORDERABLES F inal Result Performing Organization Address [facility]/[place] [address] * (ABNORMAL) POCT GLYCATED HEMOGLOBIN, TOTAL (10/22/2022 1:46 PM EST) Hemoglobin A1C 6.9(A) 4 - 6 % SEP OFFICE Lot Number SEP OFFICE Expiration Date SEP OFFICE SeriAl # SEP OFFICE 10/22/2022 1:46 PM EST [facility] POINT OF CARE TEST ORDERABLES F inal Result Performing Organization Address City/[facility]/ZIP Co de Phone Number SEP OFFICE * (ABNORMAL) LIPID SCREEN (05/14/2022 2:49 PM EDT) Cholesterol 186 <200 mg/dL 05/14/2022 9:23 PM EDT [facility] Comment: < 200 Desirable 200 - 239 Borderline High >= 240 High Triglyceride 190(H) <150 mg/dL 05/14/2022 9:23 PM EDT [facility] Comment: < 150 Normal 150 - 199 Borderline High 200 - 499 High >= 500 Very High HDL 39(L) >=40 mg/dL 05/14/2022 9:23 PM EDT [facility] Comment: > 60 Optimal 40 - 60 Acceptable < 40 Low LDL Calculated 114(H) <100 mg/dL 05/14/2022 9:23 PM EDT [facility] Comment: < 100 Optimal 100 - 129 Near or above optimal 130 - 159 Borderline High 160 - 189 High >= 190 Very High Non-HDL-C Calculated 147(H) <=129 mg/dL 05/14/2022 9:23 PM EDT [facility] Comment: <130 Desirable 130-159 Above Desirable 160-189 Borderline High 190-219 High >= 220 Very High Fasting Specimen? No None 022 9:23 PM EDT [facility] Blood VENOUS BLOOD / Unknown Venipuncture / Unknown 05/14/2022 2:49 PM EDT 05/14/2022 2:49 PM EDT Luis Brito DO CHEMISTRY ORDERABLES Final Resu lt Performing Organization Address [facility] Co de Phone Number [facility], [address] , [address] [place] [phone] [facility] [address] [place] [address] * (ABNORMAL) ACUTE HEPATITIS PANEL (04/30/2020 9:16 AM EDT) Hep Bs Ag Non-Reacti ve Non-Reacti ve 04/30/2020 2:15 PM EDT [facility], [facility] Hep B Core IgM Non-Reacti ve Non-Reacti ve 04/30/2020 2:15 PM EDT [facility], [facility] Hep A IgM Non-Reacti ve Non-Reacti ve 04/30/2020 2:15 PM EDT [facility] Hep C Ab Reactive(A ) Non-Reacti ve 04/30/2020 2:15 PM EDT [facility], [facility] Comment:Reactive. Antibodies to HCV detected. >97% of specimens with high signal cutoff confirm as reactive. HCV QUANT W/RFLX TO GENOTYPE -REF LAB is suggested for newly diagnosed HCV. Blood Venipuncture / Unknown 04/30/2020 9:16 AM EDT 04/30/2020 9:38 AM EDT Renay Whitfield MD CHEMISTRY ORDERABLES Final Resul t Performing Organization Address [facility] Co de Phone Number [facility], [facility] [address] , [place] [address] from Last 3 Months or Most Recently Relevant to Health Maintenance Insurance [place]ID [place] A[place] MEDICARE HMO MEDICA[place] AETNA MEDICARE HMO ATTN: MEDICAL DEPT. [address] ATTN: MEDICAL DEPT. [address] * Guarantor: CORPORATE,RAYMON [employer] Account Type Relation to Patient Date of Phone Billing Address [employer] ATTN: MEDICAL DEPT. [address] Advance Directives For more information, please contact: [phone] * Full Code (Latest Code Status on [...] 10:52 PM 04/30/2020 4:35 AM Care Teams Assistant Professor Of Surgery Relationship Specialty Start Date End Date Luis Brito DO [address] [place] [address] PCP - General Family Medicine 11/25/18
--- OUTSIDE RECORDS SUMMARY | 2025-02-09 15:20 | XMS_ITS | Clinical Summary ---
Author Organization [facility] Address [address] [place] [address] Care Team Providers Care Bolter Helper Name Role Phone Unavailable Primary Care Provider [...] 2008 UKY-Zoster Vaccines (1 of 2) 2008 [id number]-41 Vaccine (1 - 20 24-25 season) 2024 [...]
--- OUTSIDE RECORDS SUMMARY | 2025-02-09 15:20 | XMS_ITS | Referral Summary ---
Author Organization [facility] Address [address] [place] [address] Care Team Providers Care Handstitching Machine Armhole Feller Name Role Phone Unavailable Primary Care Provider [...]
[2025-02-09 16:00] VITALS: BP 115/55; PULSE 88; RESP 16; TEMP 36.6; O2SAT 94
[2025-02-09 16:55] LABS: POC Glucose,Bedside 220 (70-110)
--- NOTE | 2025-02-09 18:06 | PC.NURSE ---
Patient is A&Ox4. Vital signs stable tolerating room air. Pt continues to report diarrhea and abdominal pain. treated with PRN pain medications once this shift per OCT. FSBS treated per OCT. Pt has been up to the chair this shift. Pt resting comfortably supine in bed with no further needs voiced at this time. Call light within reach
[2025-02-09 19:32] VITALS: BP 139/69; PULSE 88; RESP 18; TEMP 36.8; O2SAT 94
[2025-02-09] MEDS: DICYCLOMINE 10MG CAPSULE 20 MG PO (19:57)
[2025-02-09 20:00] VITALS: O2SAT 94
[2025-02-09] MEDS: INSULIN GLARGINE 100 UNITS/ML 3ML FLEXPEN 10 UNIT SUBCUT (21:43)
[2025-02-09 22:22] LABS: POC Glucose,Bedside 147 (70-110)
[2025-02-10] VITALS: BP 144/73; PULSE 84; RESP 20; TEMP 36.8; O2SAT 93
[2025-02-10 04:00] VITALS: BP 130/63; PULSE 84; RESP 18; TEMP 36.6; O2SAT 95; BMI 29.4
--- NOTE | 2025-02-10 05:00 | PC.NURSE ---
2145: Blood sugar was obtained and blood sugar was 147. No regular insulin was needed per the sliding scale. Pt. had Lantus ordered. This RN took the insulin pen into the patients room. this RN showed pt. how to use the pen. Demonstrated turning the dial at bottom of pen to set the dose of Insulin. Pt. demonstrated back to RN. I shoed patient the needle for the pen. I demonstrated how to place needle was screwed onto the pen. I toook the needle off and had pt. demonstrate the procedure back . I showed pt. how to hold skin on abdomen and clean with alcohol. I guided pt's hand with the pen to skin and helped hold the pen in place and he pushed the dial down to deliver the 10 unit dose of Lantus. After the Lantus was delivered the pt. had no questions.
[2025-02-10 06:11] LABS: Basophils % 0.6 % (0.1-2.0); Eosinophils # 0.3 Kmm3 (0.0-0.4); Eosinophils % 4.8 % (0.1-12.0); Hematocrit 42.7 % (42.0-52.0); Hemoglobin 14.6 g/dL (14.1-18.0); Immature Granulocytes # 0.03 10^3uL; Immature Granulocytes % 0.5 %; Lymphocytes # 2.1 K/mm3 (0.7-4.5); Lymphocytes % 32.3 % (10-50); Mean Corpuscular HGB Conc 34.2 g/dL (31.8-35.4); Mean Corpuscular Hemoglobin 30.3 pg (27.0-31.2); Mean Corpuscular Volume 88.6 fl (80-94); Mean Platelet Volume 10.6 fl (7.4-10.4); Monocytes # 0.6 K/mm3 (0.1-1.0); Neutrophils # 3.3 K/mm3 (1.8-7.8); Neutrophils % 51.8 % (37.0-80.0); Nucleated Red Blood Cells # 0 10^3/uL; Nucleated Red Blood Cells % 0 %; Platelet Count 220 K/mm3 (142-424); Red Blood Count 4.82 M/mm3 (4.60-6.20); Red Cell Distribution Width 12.6 % (11.5-17.5); Red Cell Distribution Width-SD 40.8 fL; White Blood Count 6.4 K/mm3 (4.8-10.8)
[2025-02-10 06:18] LABS: POC Glucose,Bedside 134 (70-110)
[2025-02-10 06:32] LABS: Albumin Level 3.4 g/dl (3.5-5.0); Chloride 110 mmol/L (98-107); Potassium 3.6 mmoL/L (3.5-5.1); Sodium 139 mmol/L (136-145)
[2025-02-10 06:35] LABS: Alanine Aminotransferase 28 U/L (12-78); Albumin/Globulin Ratio 1.3 (1.1-1.8); Alkaline Phosphatase 68 U/L (38-126); Anion Gap 6.6 mEq/L (5-15); Aspartate Amino Transferase 27 U/L (17-59); Bilirubin,Total 0.3 mg/dl (0.2-1.3); Blood Urea Nitrogen 13 mg/dl (9-20); Calcium 8.6 mg/dl (8.4-10.2); Carbon Dioxide 26 mmol/L (22.0-30.0); Creatinine Clearance Estimated 101 mL/min (50-200); Estimated Glomerular Filt Rate 113 ml/min (>60); GFR (African American) 137 ML/MIN (>60); Globulin 2.6 g/dL (1.3-3.2); Glucose 163 mg/dl (74-100)
--- NOTE | 2025-02-10 06:42 | PC.NURSE ---
Pt. is alert and orientated x 4. Pt. is on room air. Pt. states that his diarrhea has slowed down but still liquid. Pt. c/o low abdominal pain but it is getting better. no Nausea or vomiting this shift. Pt. up to bathroom independently. Pt. slept well this shift. Personal items and call aguirre in reach. safety measures in place.
--- NOTE | 2025-02-10 07:22 | P.DS_ITS ---
General Admission date:: 02/08/25 Discharge date: 02/10/25 HPI HPI HPI: This patient whose had abdominal pain for 3 days with a lot of diarrhea, stating that basically left upper quadrant to the umbilicus where he has a old hernia. That has not changed in any time, patient states he is homebound because he does not have a car.. That he normally would see Dr. Brito at [place]. He noted that he did also have chest tubes approximately 4 years ago on the left side. Approximately 3 weeks ago he ended up having several dogs that were ill for of them he treated them as if it was parvovirus 1 dog did live and is in the house with him with 5 other dogs and 7 cats. EMS that picked him up gave a report that the inside of the house was quite cluttered. Patient also has been diagnosed with having diabetes mellitus hemoglobin A1c of 9.7. Still is not year if he knew he had diabetes. Has had elevated blood sugars on every lab drawn since the early 1999. After Dr. Raymundo have spoken with the ER physician we will be admitting., Looking at the fact has been exposed to so many animals will also give Levaquin to treat if it is a abdominal bacterial infection related to being exposed to the animals. Also will place him on sliding scale and start to treat his diabetes. Will add Pepto-Bismol as needed to try to stop the diarrhea also waiting for stool specimen. 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 Hospital Course Hospital Course Hospital Course: 64-year-old male who presents with abdominal pain, nausea and vomiting along with diarrhea. Admitted for gastroenteritis as well as new diagnosis of diabetes. A1c elevated on admission at 9. Case discussed with ER physician, request admission. Medicine agreed to admit for further care. Stool panel found to be positive for EPEC, responding well to insulin for diabetes. Tolerating p.o. intake. Having improvement in stool output. Labs normalized. Stable to discharge home to complete short course of antibiotics as an outpati ent. Problems addressed as follows: Still having significant stool burden today. Adjusting diabetes regimen. Continues to require inpatient management. Problems addressed as follows: Enteropathogenic E. Coli enteritis Nausea vomiting diarrhea - Presented with significant watery diarrhea. Diarrhea PCR found to be positive for EPEC. Stools improved during admission. Given significance of symptoms, patient treated with short course of levofloxacin. Tolerating p.o. intake. Overall doing better. White count normalized at 6.4. Kidney function normal with BUN 13 and creatinine 0.7. Continue Tylenol or ibuprofen for pain. Given improvement, will discharge home with close follow-up with his PCP for further management. Thrombocytopenia: Platelets 67 initially, improved to 220 by day of discharge. Unsure why they were so low. May have been an error with the lab. Patient does have hepatitis C and will need to follow-up for further treatment as an outpatient with our hep C clinic. Should be contacted by clinical psychology professor for further management. New onset diabetes: A1c greater than 9. Initiated on sliding scale insulin with fingersticks ACHS during admission. Initiated long-acting insulin at night. Morning glucose 163 on day of discharge. Will increase Lantus to 15 units nightly. Sent home with insulin glargine pen. Holding on metformin due to GI symptoms. Will need close follow-up with PCP for further adjustments. Total time spent on discharge 32 minutes in counseling, documentation, chart review, and direct care with patient. Exam Data for Last 24 hours Vital signs and Labs for Last 24 Hours: Temp Pulse Resp BP Pulse Ox O2 Del Method 97.8 F 84 18 130/63 95 Room Air 02/10/25 04:00 02/10/25 04:00 02/10/25 04:00 02/10/25 04:00 02/10/25 04:00 02/10/25 04:00 Laboratory Results - last 24 hr 02/09/25 04:50: Stl C. cayetanensis PCR Not detected, Stool Rotavirus (PCR) Not detected, Stl Adenov F 40/41 PCR Not detected, Stool Astrovirus (PCR) Not detected, Stool Campylobacter PCR Not detected, Stl C.difficile Tox PCR Not detected, Stool Cryptosporidium PCR Not detected, Stl E.coli Shiga Tox PCR Not detected, Stool E coli O157 PCR Not detected, Stl Enterotoxigenic E PCR Not detected, Stool EPEC (PCR) Detected A, Stool EAEC (PCR) Not detected, Stl E. histolytica PCR Not detected, Stool Giardia Lamblia PCR Not detected, Stool Salmonella PCR Not detected, Stool Sapovirus (PCR) Not detected, Stl P. shigelloides PCR Not detected, Stl Shigella/EIEC PCR Not detected, St Y.enterocolitica PCR Not detected, Stool Vibrio (PCR) Not detected, Stl Vibrio cholerae PCR Not detected, Stl Norovirus GI/GII PCR Not detected 02/09/25 06:36: WBC 6.2 D, RBC 4.74, Hgb 14.1 D, Hct 43.4, MCV 91.6, MCH 30.4, MCHC 33.2, RDW 12.8, Plt Count 67 L D, MPV 11.6 H, Neut % (Auto) 58.5, Lymph % (Auto) 25.7, [place] % (Auto) 11.7 H, Eos % (Auto) 3.3, Baso % (Auto) 0.5, Neut # (Auto) 3.6, Lymph # (Auto) 1.6, [place] # (Auto) 0.7, Eos # (Auto) 0.2, Baso # (Auto) 0.0, Sodium 137, Potassium 3.8, Chloride 111 H, Carbon Dioxide 22, Anion Gap 7.8, BUN 15, Creatinine 0.70, Estimated Creat Clear 100, Estimated GFR 113, Est GFR ( Amer) 137, Glucose 185 H, Calcium 8.7, Magnesium 1.8, Total B ilirubin 0.3, AST 25, ALT 26, Alkaline Phosphatase 59, Total Protein 5.4 L D, Albumin 3.3 L D, Globulin 2.1, Albumin/Globulin Ratio 1.6 02/09/25 10:48: POC Glucose 150 H 02/09/25 16:48: POC Glucose 220 H 02/09/25 21:37: POC Glucose 147 H 02/10/25 05:53: WBC 6.4, RBC 4.82, Hgb 14.6, Hct 42.7, MCV 88.6, MCH 30.3, MCHC 34.2, RDW 12.6, Plt Count 220 D, MPV 10.6 H, Neut % (Auto) 51.8, Lymph % (Auto) 32.3, [place] % (Auto) 10.0 H, Eos % (Auto) 4.8, Baso % (Auto) 0.6, Neut # (Auto) 3.3, Lymph # (Auto) 2.1, [place] # (Auto) 0.6, Eos # (Auto) 0.3, Baso # (Auto) 0.0, Sodium 139, Potassium 3.6, Chloride 110 H, Carbon Dioxide 26, Anion Gap 6.6, BUN 13, Creatinine 0.70, Estimated Creat Clear 101, Estimated GFR 113, Est GFR ( Amer) 137, Glucose 163 H, Calcium 8.6, Magnesium 2.0 D, Total Bilirubin 0.3, AST 27, ALT 28, Alkaline Phosphatase 68, Total Protein 6.0 L, Albumin 3.4 L, Globulin 2.6, Albumin/Globulin Ratio 1.3 02/10/25 06:09: POC Glucose 134 H I & O for Last 24 hours: Intake & Output 02/07/25 02/08/25 02/09/25 02/10/25 23:59 23:59 23:59 23:59 Intake Total 3241 / 3741 500 / 500 Output Total 100 / 100 Balance 3141 / 3641 500 / 500 Weight 94.71 kg 97.658 kg 98.566 kg Microbiology Reports for the Last 24 Hours: Microbiology 02/08/25 16:35 Blood Blood Culture - Preliminary NO GROWTH AFTER 24 HOURS 02/08/25 16:55 Blood Blood Culture - Preliminary NO GROWTH AFTER 24 HOURS Constitutional Constitutional: no acute distress, obese, chronically ill appearing and coopera tive *Routine HEENT Exam Head: Present normocephalic Eye: Present EOMI and PERRL ENT: Present mucous membranes moist *Routine Neck Exam Neck: Present supple; Absent lymphadenopathy *Routine Respiratory Exam Respiratory: Present CTA bilaterally; Absent rhonchi, wheezes or crackles *Routine Cardiovascular Exam Cardiovascular: Present RRR *Routine Abdominal Exam Abdominal: Present soft, normoactive bowel sounds, tenderness (mild, non focal ) and distended; Absent rebound or guarding *Routine Rectal Exam Patient deferred: visual exam *Routine Exam Patient deferred: penile exam *Routine Extremities Exam Extremities: Absent cyanosis, clubbing or edema *Routine Skin Exam Skin: Present warm; Absent rash *Routine Neurological Exam Neurological: Present alert, oriented X3 and moving all extremities; Absent altered mental status Results Data Completed and Pending Labs on day of discharge: Labs from last 24 hours 02/10/25 02/10/25 02/09/25 06:09 05:53 21:37 WBC 6.4 RBC 4.82 Hgb 14.6 Hct 42.7 MCV 88.6 MCH 30.3 MCHC 34.2 RDW 12.6 Plt Count 220 D MPV 10.6 H Neut % (Auto) 51.8 Lymph % (Auto) 32.3 [place] % (Auto) 10.0 H Eos % (Auto) 4.8 Baso % (Auto) 0.6 Neut # (Auto) 3.3 Lymph # (Auto) 2.1 [place] # (Auto) 0.6 Eos # (Auto) 0.3 Baso # (Auto) 0.0 Sodium 139 Potassium 3.6 Chloride 110 H Carbon Dioxide 26 Anion Gap 6.6 BUN 13 Creatinine 0.70 Estimated Creat Clear 101 Estimated GFR 113 Est GFR ( Amer) 137 Glucose 163 H POC Glucose 134 H 147 H Calcium 8.6 Magnesium 2.0 D Total Bilirubin 0.3 AST 27 ALT 28 Alkaline Phosphatase 68 Total Protein 6.0 L Albumin 3.4 L Globulin 2.6 Albumin/Globulin Ratio 1.3 Stl C. cayetanensis PCR Stool Rotavirus (PCR) Stl Adenov F 40/ PCR Stool Astrovirus (PCR) Stool Campylobacter PCR Stl C.difficile Tox PCR Stool Cryptosporidium PCR Stl E.coli Shiga Tox PCR Stool E coli O157 PCR Stl Enterotoxigenic E PCR Stool EPEC (PCR) Stool EAEC (PCR) Stl E. histolytica PCR Stool Giardia Lamblia PCR Stool Salmonella PCR Stool Sapovirus (PCR) Stl P. shigelloides PCR Stl Shigella/EIEC PCR St Y.enterocolitica PCR Stool Vibrio (PCR) Stl Vibrio cholerae PCR Stl Norovirus GI/GII PCR 02/09/25 02/09/25 02/09/25 16:48 10:48 06:36 WBC 6.2 D RBC 4.74 Hgb 14.1 D Hct 43.4 MCV 91.6 MCH 30.4 MCHC 33.2 RDW 12.8 Plt Count 67 L D MPV 11.6 H Neut % (Auto) 58.5 Lymph % (Auto) 25.7 [place] % (Auto) 11.7 H Eos % (Auto) 3.3 Baso % (Auto) 0.5 Neut # (Auto) 3.6 Lymph # (Auto) 1.6 [place] # (Auto) 0.7 Eos # (Auto) 0.2 Baso # (Auto) 0.0 Sodium 137 Potassium 3.8 Chloride 111 H Carbon Dioxide 22 Anion Gap 7.8 BUN 15 Creatinine 0.70 Estimated Creat Clear 100 Estimated GFR 113 Est GFR ( Amer) 137 Glucose 185 H POC Glucose 220 H 150 H Calcium 8.7 Magnesium 1.8 Total Bilirubin 0.3 AST 25 ALT 26 Alkaline Phosphatase 59 Total Protein 5.4 L D Albumin 3.3 L D Globulin 2.1 Albumin/Globulin Ratio 1.6 Stl C. cayetanensis PCR Stool Rotavirus (PCR) Stl Adenov F 40 PCR Stool Astrovirus (PCR) Stool Campylobacter PCR Stl C.difficile Tox PCR Stool Cryptosporidium PCR Stl E.coli Shiga Tox PCR Stool E coli O157 PCR Stl Enterotoxigenic E PCR Stool EPEC (PCR) Stool EAEC (PCR) Stl E. histolytica PCR Stool Giardia Lamblia PCR Stool Salmonella PCR Stool Sapovirus (PCR) Stl P. shigelloides PCR Stl Shigella/EIEC PCR St Y.enterocolitica PCR Stool Vibrio (PCR) Stl Vibrio cholerae PCR Stl Norovirus GI/GII PCR 02/09/25 04:50 WBC RBC Hgb Hct MCV MCH MCHC RDW Plt Count MPV Neut % (Auto) Lymph % (Auto) [place] % (Auto) Eos % (Auto) Baso % (Auto) Neut # (Auto) Lymph # (Auto) [place] # (Auto) Eos # (Auto) Baso # (Auto) Sodium Potassium Chloride Carbon Dioxide Anion Gap BUN Creatinine Estimated Creat Clear Estimated GFR Est GFR ( Amer) Glucose POC Glucose Calcium Magnesium Total Bilirubin AST ALT Alkaline Phosphatase Total Protein Albumin Globulin Albumin/Globulin Ratio Stl C. cayetanensis PCR Not detected Stool Rotavirus (PCR) Not detected Stl Adenov F PCR Not detected Stool Astrovirus (PCR) Not detected Stool Campylobacter PCR Not detected Stl C.difficile Tox PCR Not detected Stool Cryptosporidium PCR Not detected Stl E.coli Shiga Tox PCR Not detected Stool E coli O157 PCR Not detected Stl Enterotoxigenic E PCR Not detected Stool EPEC (PCR) Detected A Stool EAEC (PCR) Not detected Stl E. histolytica PCR Not detected Stool Giardia Lamblia PCR Not detected Stool Salmonella PCR Not detected Stool Sapovirus (PCR) Not detected Stl P. shigelloides PCR Not detected Stl Shigella/EIEC PCR Not detected St Y.enterocolitica PCR Not detected Stool Vibrio (PCR) Not detected Stl Vibrio cholerae PCR Not detected Stl Norovirus GI/GII PCR Not detected Preliminary micro results at discharge 02/08/25 16:35 Blood Culture - Preliminary Blood NO GROWTH AFTER 24 HOURS 02/08/25 16:55 Blood Culture - Preliminary Blood NO GROWTH AFTER 24 HOURS DS: Diagnosis Discharge Diagnosis (1) Intractable abdominal pain: Status: Acute Code(s): R10.9 - Unspecified abdominal pain (2) Vomiting and diarrhea: Status: Acute Code(s): R11.10 - Vomiting, unspecified; R19.7 - Diarrhea, unspecified (3) Diabetes mellitus: Status: Acute Code(s): E11.9 - Type 2 diabetes mellitus without complications Qualifiers: Diabetes mellitus complication status: without complication Diabetes mellitus assisted insulin use: without assisted use Diabetes mellitus type: type 2 Qualified Code(s): E11.9 - Type 2 diabetes mellitus without complications Problem details: New diagnosis (4) Umbilical hernia: Status: Acute Code(s): K42.9 - Umbilical hernia without obstruction or gangrene Qualifiers: Obstruction and gangrene presence: without obstruction or gangrene Qualified Code(s): K42.9 - Umbilical hernia without obstruction or gangrene (5) Obesity (BMI 35.0-39.9 without comorbidity): Status: Acute Code(s): E66.9 - Obesity, unspecified (6) HCV antibody positive: Status: Acute Code(s): R76.8 - Other specified abnormal immunological findings in serum (7) Intestinal infection due to enteropathogenic E. coli: Status: Acute Code(s): A04.0 - Enteropathogenic Escherichia coli infection Meds Home Medications and Allergies Home Medications ?Medication ?Instructions ?Recorded ?Confirmed ?Type insulin glargine 100 unit/mL (3 15 unit (0.15 mL) SQ H S 30 days 02/10/25 Rx mL) subcutaneous pen (Lantus #15 mL Solostar U-100 Insulin) levofloxacin 500 mg tablet 500 mg PO 1100 2 days #2 ta bs 02/10/25 Rx pen needle, diabetic 31 gauge x #100 ea 02/10/25 Rx 01/08 New Prescriptions to Start Prescriptions: insulin glargine [Lantus Solostar U-100 Insulin] Gui Raymundo levofloxacin Gui Raymundo pen needle, diabetic Gui Raymundo Allergies Allergy/AdvReac Type Severity Reaction Status Date / Time No Known Allergies Allergy Verified 01/25/23 19:01 Discharge Plan Disposition Patient Disposition: Home, Self-Care Condition: Fair Discharge Order Discharge Orders: Discharge Order (Routine); Ordered 02/10/25 Ordered By: Gui Raymundo Follow up Plan Follow up with: Luis Brito [Primary Care Provider, Medical] - 02/16/25 10:00 am Prescriptions/Medication Reconciliation: New insulin glargine [Lantus Solostar U-100 Insulin] 100 unit/mL (3 mL) Insulin Pen 15 unit SQ HS 30 Days Qty: 15 0RF levofloxacin 500 mg Tablet 500 mg PO 1100 2 Days Qty: 2 0RF (DME) pen needle, diabetic 31 gauge x 5/16 needle See Rx Instructions .Route Qty: 100 0RF Rx Instructions: Nightly with long-acting insulin Problem Reconciliation Problems Reviewed?: Yes Patient Discharge Instructions ACTIVITY: Continue current activity DIET: continue same diet Patient Instructions: Carbohydrate-Counting Diet, DI for Abdominal Pain-Adult, DI for Diabetes Type 2, How to Use an Insulin Pen, Diabetes Diet Label Reading Tips Print Language: [place] Providers Primary Care Provider: Luis Brito Admit Provider: Gui Raymnudo Attending Provider: Gui Raymundo
[2025-02-10 08:00] VITALS: BP 126/69; PULSE 87; RESP 20; TEMP 36.5; O2SAT 97
[2025-02-10] MEDS: SODIUM CHLORIDE 3% 15ML NEB 3 ML IH (08:56)
[2025-02-10 08:58] VITALS: RESP 16
--- NOTE | 2025-02-10 10:19 | XR_ITS ---
FINAL REPORT CLINICAL HISTORY: gastroenteritis, distension COMPARISON: None FINDINGS: SINGLE VIEW ABDOMEN A single view of the abdomen was obtained. Gas and stool is seen throughout the colon. There are few air-filled loops of small bowel. There are no abnormally dilated loops of bowel. No abnormal calcifications are identified. IMPRESSION: Moderate constipation. Reviewed, Interpreted and Dictated by Rigo Olivier MD Transcribed by Milagro Wilkinson Authenticated and [facility]
--- NOTE | 2025-02-10 11:56 | DIET.NUTRFU ---
RD saw patient to review diabetic diet handouts. RD reviewed what foods to limit- he does drink regular soda at home and candy occasionally. Encouraged to switch beverages to water, monitor portion control on carb intake and add high fiber fruits in diet. Provided handout on carb counting and label reading. Also reviewed how the referral works to see RD as out patient for further follow-up
[2025-02-10] MEDS: levoFLOXacin 500MG TAB 500 MG PO (12:12)
[2025-02-10 12:22] LABS: POC Glucose,Bedside 142 (70-110)
== END 2025-02-10 15:51 | disposition home or self-care (01) | DRG 372 ==
LOC: ER 18:52 → 2ND 19:46
PROVIDERS: Nurse Practitioner Family; Admitting Provider Internal Medicine Adolescent Medicine; Emergency Provider Emergency Medicine; PCP Family Medicine; Visit Provider Internal Medicine Adolescent Medicine
DX: A04.0 Enteropathogenic Escherichia coli infection (principal); E87.20 Acidosis, unspecified; E11.9 Type 2 diabetes mellitus without complications; K42.9 Umbilical hernia without obstruction or gangrene; E66.9 Obesity, unspecified; D69.6 Thrombocytopenia, unspecified; B19.20 Unspecified viral hepatitis C without hepatic coma; Z68.28 Body mass index [BMI] 28.0-28.9, adult
CPT/HCPCS: 36415; 71275; 74018; 74174; 80053; 80061; 81001; 82803; 82962; 83036; 83605; 83690; 83735; 84436; 84443; 84484; 85025; 85610; 85730; 86803; 87040; 87070; 87205; 87389; 87506; 87522; 93005; J1171; J1885; J2470; J2550; J7030; J7120; Q9967